=== PATIENT | male | born 1950 | race Caucasian/White ===

== ENCOUNTER → 2019-01-19 07:38 | Outpatient (CLI) | payer MEDICARE, SELFPAY ==
[2019-01-19 09:40] LABS: Alanine Aminotransferase 26 IU/L (21-72); Albumin 4.4 g/dL (3.5-5.0); Albumin Globulin Ratio 1.6 (1.0-2.8); Alkaline Phosphatase 81 U/L (38-126); Aspartate Aminotransferase 32 IU/L (17-59); BUN Creatinine Ratio 23.3 (6-22); Bilirubin Total 0.7 mg/dL (0.2-1.3); Blood Urea Nitrogen 21 mg/dL (9-20); Carbon Dioxide 27 mmol/L (22-32); Chloride 103 mmol/L (98-107); Cholesterol 161 mg/dL (140-199); Estimated Glomerular Filt Rate > 60.0 mL/min (>60); Globulin 2.8 g/dL (1.7-4.1); Glucose 89 mg/dL (80-110); HDL Cholesterol 40 mg/dL (40-60); HEMOLYSIS 23 (0-50); LDL Cholesterol Calculated 97 mg/dL (<100); Potassium 4.3 mmol/L (3.4-5.1); Sodium 140 mmol/L (137-145); Total Protein 7.2 g/dL (6.3-8.2); Triglycerides 120 mg/dL (35-150)
[2019-01-19 09:58] LABS: Prostate Specific Antigen Scrn 2.41 ng/mL (0.1-4.0)
[2019-01-19 10:13] LABS: TSH w/ Reflex to FT4 2.11 uIU/mL (0.47-4.68)
== END ==
PROVIDERS: PCP Internal Medicine; Visit Provider Internal Medicine
DX: E66.9 Obesity, unspecified (principal); Z12.5 Encounter for screening for malignant neoplasm of prostate
CPT/HCPCS: 36415; 80053; 80061; 84443; G0103

== ENCOUNTER → 2020-03-16 07:29 | Outpatient (CLI) | payer MEDICARE, SELFPAY ==
[2020-03-16 09:04] LABS: Cholesterol 143 mg/dL (140-199); HDL Cholesterol 41 mg/dL (40-60); LDL Cholesterol Calculated 84 mg/dL (<100); Triglycerides 91 mg/dL (35-150)
== END ==
PROVIDERS: PCP Internal Medicine; Referring Provider Internal Medicine; Visit Provider Internal Medicine
DX: E66.9 Obesity, unspecified (principal)
CPT/HCPCS: 36415; 80061

== ENCOUNTER → 2020-11-02 15:49 | Outpatient (CLI) | payer MEDICARE, SELFPAY ==
[2020-11-02] MEDS: COVID-19 VACC #1, MRNA(MOD) 100 MCG/0.5 ML VIAL IM (16:13)
== END ==
PROVIDERS: PCP Internal Medicine; Visit Provider Internal Medicine
DX: Z23 Encounter for immunization (principal)
CPT/HCPCS: 0011A; 91301

== ENCOUNTER → 2020-11-30 15:26 | Outpatient (CLI) | payer MEDICARE, SELFPAY ==
[2020-11-30] MEDS: COVID-19 VACC #2, MRNA(MOD) 100 MCG/0.5 ML VIAL IM (15:29)
== END ==
PROVIDERS: PCP Internal Medicine; Visit Provider Internal Medicine
DX: Z23 Encounter for immunization (principal)
CPT/HCPCS: 0012A; 91301

== ENCOUNTER → 2022-08-18 07:46 | Outpatient (CLI) | payer MEDICARE, SELFPAY ==
[2022-08-18 10:11] LABS: Prostate Specific Antigen Scrn 3.02 ng/mL (0.1-4.0)
== END ==
PROVIDERS: PCP Internal Medicine; Referring Provider Urology; Visit Provider Urology
DX: Z12.5 Encounter for screening for malignant neoplasm of prostate (principal)
CPT/HCPCS: 36415; G0103

== ENCOUNTER → 2023-01-12 07:46 | Outpatient (CLI) | payer MEDICARE, SELFPAY ==
[2023-01-12 08:04] LABS: Add Manual Diff / Slide Review NO; Basophils Absolute Auto 100 /uL (0-100); Basophils Percent Auto 0.9 % (0-2); Eosinophils Absolute Auto 300 /uL (0-450); Eosinophils Percent Auto 3.7 % (2-4); Hematocrit 43.8 % (41-53); Hemoglobin 15.4 g/dL (13.5-17.5); Lymphocytes Absolute Auto 2600 /uL (1100-4500); Lymphocytes Percent Auto 38.9 % (25-40); Mean Corpuscular HGB Conc 35.1 % (30-36); Mean Corpuscular Hemoglobin 30.2 PG (26-34); Monocytes Absolute Auto 700 /uL (0-900); Monocytes Percent Auto 9.6 % (3-14); Neutrophils Absolute Auto 3200 /uL (1500-7000); Neutrophils Percent Auto 46.9 % (50-75); Platelet Count 196 X10^3/uL (150-400); Red Blood Cell Count 5.09 X10^6/uL (4.5-5.9); Red Cell Distribution Width 13.1 % (11.6-14.8); White Blood Cell Count 6.8 X10^3/uL (4.5-11.0)
[2023-01-12 08:49] LABS: Alanine Aminotransferase 24 IU/L (<50); Albumin 4.1 g/dL (3.5-5.0); Albumin Globulin Ratio 1.5 (1.0-2.8); Alkaline Phosphatase 96 U/L (38-126); Aspartate Aminotransferase 26 IU/L (17-59); BUN Creatinine Ratio 21.7 (6-22); Blood Urea Nitrogen 20 mg/dL (9-20); Calcium 9.1 mg/dL (8.4-10.2); Carbon Dioxide 29 mmol/L (22-32); Chloride 104 mmol/L (98-107); Cholesterol 175 mg/dL (140-199); Estimated Glomerular Filt Rate > 60 mL/min (>60); Globulin 2.8 g/dL (1.7-4.1); Glucose 92 mg/dL (80-110); HDL Cholesterol 44 mg/dL (40-60); HEMOLYSIS < 15 (0-50); LDL Cholesterol Calculated 109 mg/dL (<100); Potassium 4.2 mmol/L (3.4-5.1); Sodium 139 mmol/L (137-145); Total Protein 6.9 g/dL (6.3-8.2); Triglycerides 109 mg/dL (35-150)
[2023-01-12 09:17] LABS: Prostate Specific Antigen Scrn 3.31 ng/mL (0.1-4.0)
== END ==
PROVIDERS: PCP Family Medicine; Referring Provider Family Medicine; Visit Provider Family Medicine
DX: I10 Essential (primary) hypertension (principal); Z12.5 Encounter for screening for malignant neoplasm of prostate; N13.8 Other obstructive and reflux uropathy; N40.1 Benign prostatic hyperplasia with lower urinary tract symptoms; R39.9 Unspecified symptoms and signs involving the genitourinary system
CPT/HCPCS: 36415; 80053; 80061; 85025; G0103

== ENCOUNTER → 2023-05-19 13:37 | Outpatient (CLI) | payer MEDICARE, SELFPAY ==
--- NOTE | 2023-05-19 13:39 | DI.RAD.S_ITS ---
PROCEDURE: XR ANKLE LT MIN 3V INDICATIONS: left ankle pain TECHNIQUE: 3 views of the ankle were acquired. COMPARISON: None. FINDINGS: Bones: No fractures or dislocations. Ankle mortise is normally aligned. No suspicious bony lesions. Soft tissues: No tibiotalar joint effusion. Achilles tendon appears normal. IMPRESSION: No evidence acute bony abnormality. If clinical suspicion and/or symptoms persist, further assessment with repeat plain films, or advanced imaging (e.g., CT, MRI, or bone scan) may be helpful for further assessment. Dictated by: Cory Eduardo M.D. on 05/19/2023 at 15:53 Approved by: Cory Eduardo M.D. on 05/19/2023 at 15:53
--- NOTE | 2023-05-19 13:39 | DI.RAD.S_ITS ---
PROCEDURE: XR CHEST 2V INDICATIONS: CHRONIC COUGH TECHNIQUE: 2 views of the chest were acquired. COMPARISON: [facility], CHEST 2 VIEW, 07/07/2017, 10:25. [facility], CHEST 2 VIEW, 03/18/2016, 11:32. FINDINGS: Surgical changes and devices: None. Lungs and pleura: Lungs are clear. No pleural effusions or pneumothorax. Mediastinum: Mediastinal contours are normal. Heart size is normal. Bones and chest wall: No suspicious bony abnormalities. Soft tissues appear unremarkable. IMPRESSION: No acute cardiopulmonary process. Dictated by: Kyaw Hansen M.D. on 05/19/2023 at 15:04 Approved by: Kyaw Hansen M.D. on 05/19/2023 at 15:05
--- NOTE | 2023-05-19 13:39 | DI.RAD.S_ITS ---
PROCEDURE: XR HIP W PEL IF DONE LT 2V INDICATIONS: CHRONIC LEFT HIP PAIN TECHNIQUE: 2 views of the hip were acquired. COMPARISON: None. FINDINGS: Bones: No fractures or dislocations. No suspicious bony lesions. The visualized pelvic ring appears intact. [id number] degenerative arthritis. Soft tissues: No suspicious soft tissue calcifications or masses. IMPRESSION: [id number] degenerative arthritis of the left hip. Dictated by: Cory Eduardo M.D. on 05/19/2023 at 15:56 Approved by: Cory Eduardo M.D. on 05/19/2023 at 15:56
--- NOTE | 2023-05-19 13:39 | DI.RAD.S_ITS ---
PROCEDURE: XR KNEE LT 3V INDICATIONS: KNEE PAIN TECHNIQUE: 3 views of the knee were acquired. COMPARISON: None. FINDINGS: Bones: No fractures or dislocations. No suspicious bony lesions. Tricompartment osteophytes. Patellofemoral joint space loss. Soft tissues: No joint effusion. No suspicious soft tissue calcifications. IMPRESSION: Degenerative arthritis. Dictated by: Cory Eduardo M.D. on 05/19/2023 at 15:54 Approved by: Cory Eduardo M.D. on 05/19/2023 at 15:54
== END ==
PROVIDERS: PCP Family Medicine; Referring Provider Family Medicine; Visit Provider Family Medicine
DX: M17.12 Unilateral primary osteoarthritis, left knee (principal); M25.572 Pain in left ankle and joints of left foot; M25.552 Pain in left hip; M25.562 Pain in left knee; R05.3 Chronic cough
CPT/HCPCS: 71046; 73502; 73562; 73610

== ENCOUNTER 2023-12-10 11:15 | Outpatient (RCR) | payer MEDICARE, SELFPAY ==
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
--- NOTE | 2023-10-15 17:35 | PT.OPPOC ---
Physical, Occupational & Speech Therapy At [facility] Current Diagnoses Pain in left hip (10/15/23) Pain in left knee (10/15/23) Pain in left ankle and joints of left foot (10/15/23) Visit Care Team Role Provider Type Farhad Jones MD Attending Provider Physician Family Provider Primary Care Provider Referring Provider Specialty: Family Practice Address: [address] [place] [address], [facility] Email: [email or web address] Plan Of Care PT-OP-T Assessment and Plan Start: 10/09/23 18:05 Freq: Status: Active Protocol: Document 10/15/23 14:44 LRN (Rec: 10/15/23 16:43 LRN [id number]) Physical Therapy Assessment Rehab Potential Rehabilitation Potential Good Evaluation Complexity Number of Personal Factors/Comorbidities 1-2 Impairments Impairments ROM,Soft Tissue Mobility, Strength Other Impairments History of intermittent pain in L hip causing difficulty sleeping, pain in sleeping positions. Goals Four Impairment Feeling weak in L ankle Short Term Goal (STG) Pt will be independent in HEP of ankle EV/IV stretching and SL balance ex's (core ex as needed). STG Duration 4 wks-11/12/23 [facility] Goal (LTG) Improve pt L ankle EV/IV ROM to increase pt ability to stabilize while walking on uneven ground (hiking). LTG Duration 8 wks-12/11/23 Three Impairment L knee pain after walking. Short Term Goal (STG) Pt will be independent with knee flexion ROM ex. STG Duration 2 wks-10/30/23 [employer] Goal (LTG) Improve L knee flexion mobility to improve pt's abiltiy to anbulate for ex w/o onset of L lateral knee pain. . LTG Duration 8 wks-12/11/23 Two Impairment Intermittent L hip pain at night, interrupting sleep. Impairment If he has hip pain, no nighttime pain wakikng him up. Short Term Goal (STG) Educate pt in best nighttime positioning to avoid L hip pressure pain. STG Duration 1 wk-10/23/23 [employer] Goal (LTG) Improve L hip ER mobility to eliminate onset of nighttime pain. LTG Duration 8 wks-12/11/23 One Impairment Pt lacks HEP. Short Term Goal (STG) Pt will be educated in self care pain management techniques (TRICE ROD w/ rafi). [facility] Goal (LTG) Pt will be educated in maintanence HEP for stabilize/ strength LLE and to slow down degredation of L hip/knee/ ankle. LTG Duration 8 wks-12/11/23 Assessment Summary Assessment Pt is a 73 yo male who presents today without c/o L lateral, posterolateral and anterior hip pain that he has had for the past year, but for the past 2 weeks has not experienced. He c/o sometimes having L hip pain while sleeping at night, and no pain when up and moving. Pain was reproduced with resisted hip AB in sidelie and hip ER stretching; therefore his pain may be arthrtic in nature. If the pt's L hip pain returns , further PT assessment will be given. He has c/o L lateral knee pain after walking that is only reproduced with excessive passive knee flexion, also indicating possible arthritic pain. HE shows no signs of internal derangement of the knee. His L ankle shows only restriction in lateral mobility, his L ankle strength is normal; therefore his feeling of weakness may be more due to a feeling of instability with a lack of ankle EV/IV mobility. The pt will benefit from skilled physical therapy to improve L LE mobility, then stability, core stability, and educate the pt in posturing and self care pain management, and work to achieve the above stated goals. Physical Therapy Plan Frequency and Duration Frequency of Treatment 2x/Week Duration of treatment (weeks) 8 Plan of Care Start Date 10/15/23 Plan of Care End Date 12/11/23 Therapeutic Interventions Therapeutic Interventions Home Exercise Program,Joint Mobilizations,Manual Therapy, Neuromuscular Re-education, Patient/Caregiver Education, Self-Care/Home Management,Soft Tissue Mobilization, Therapeutic Activities, Therapeutic Exercises Modalities Cold Pack/Ice Massage,Hot Packs,Ultrasound Next Visit Focus/Plan Next Note Type Treatment Note Next Visit Plan Next: Start with warm-up of exercise, Review HEP of L hip ER and L ankle EV/IV ROM ex and issue handout. POC: L hip (ER), knee (flex), ankle (EV/IV) mobility ex's, then stability ex's; core stability with ex, and educate the pt in posturing ( nighttime) and self care pain management. Balance ex's. Plan of Care Dates Plan of Care Start Date 10/15/23 Plan of Care End Date 12/11/23 Electronically Signed by: Holley Clement, PT 10/15/23 2813 If you are in agreement with this Plan of Care, please return a signed and dated copy. I have reviewed this Plan of Care and certify that the skilled therapy services above are required to meet the patient?s needs. Physician Signature Date Printed Name and Credentials Clinical Instructor Signature Printed Name and Credentials
--- NOTE | 2023-10-20 14:26 | PT.OTN ---
Current Diagnoses Pain in left hip (10/20/23) Pain in left knee (10/20/23) Pain in left ankle and joints of left foot (10/20/23) Physical Therapy Treatment Note PT-OP-A Visit Information Start: 10/09/23 18:05 Freq: Status: Active Protocol: Document 10/20/23 09:53 LRN (Rec: 10/20/23 10:35 LRN [id number]) Out-Patient Physical Therapy Visit Information Visit Information Visit Type Treatment Note Visit Start Time 09:53 Visit Stop Time 10:32 Total Visit Minutes 39 Visit Number 2 Evaluation Information Evaluation Date 10/15/23 Precautions Precautions Pt reports history of: Arthritis, back pain, vaso vagal syncope. 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 PT-OP-B Current Condition Start: 10/09/23 18:05 Freq: Status: Active Protocol: Document 10/15/23 14:44 LRN (Rec: 10/15/23 16:43 LRN [id number]) Current Condition History of Current Condition Onset Date 1 yr ago. Current Complaints No pain, L LE has made gait different, L knee unstable laterally. History of Current Condition 12-15 yrs ago developed weakness in L ankle. Going downhill ankle felt ankle could give way, but wasn't falling. L knee winter, slipped on ice with the L leg slipping under him and R leg went out in front of him (grabbed car with L arm), landing on L buttock. 2013 playing competetive baseball, 2016 missed the bottom 2 steps at home and landed like the previous fall of L leg under him. After 2 weeks of either incidents pain at lateral L knee and ramsey, went away. 1 yr ago L lateral hip and joint started bothering him. For months was on/off. Last 2 months the L lateral hip pain has been waking him. The last 2 weeks has had no nighttime pain. Biking feels like he is supported. KNEE PAIN WITH WLAKIKNG OR HIKING 6 MILES OR SO; HIP PAIN HAS ONLY BEEN WITH SLEEPING. HAS NOT HAD ANY HIP PAIN WITH WALKING. Prior Treatments and Tests X-rays (05/19/2023) showed arthritis in L hip and knee. Treatment Goals Patient/Caregiver Goals Pt goals: Maintanence HEP for stabilize/ strength LLE and to slow down degredation of L hip/knee/ ankle. If he has hip pain, no nighttime pain waking him up. Personal Factors Other Personal Factors That May Effect Arthritis, Walking [facility]/[place]overy trail or [place] park 3x/wk (10,000 steps) & home cable UE ex's- 2x/week. Pt has visible abdominal hernia. PT-OP-C Subjective Start: 10/09/23 18:05 Freq: Status: Active Protocol: Document 10/20/23 09:53 LRN (Rec: 10/20/23 10:35 LRN [id number]) OP-PT Subjective Patient Comments Patient Comments States he has been doing his HEP. PT-OP-G Mobility & Gait Start: 10/09/23 18:05 Freq: Status: Active Protocol: Document 10/15/23 14:44 LRN (Rec: 10/15/23 16:43 LRN [id number]) OP Gait Assessment Gait Gait Assistance Required: Independent Assistive Devices Assistive Device None Gait Deviations General Gait Pattern Within Normal Limits Comments Gait Comments Normal gait. Stair Climbing Evaluation Evaluation Level of Assist On Stairs Independent Devices Stair Climbing Assistive Devices None Technique/Endurance Stair Climbing Technique Step Over Step Comments Stair Climbing Comments Use of railing with stairs. PT-OP-H Neuro Start: 10/09/23 18:05 Freq: Status: Active Protocol: Document 10/15/23 14:44 LRN (Rec: 10/15/23 16:43 LRN [id number]) Sensation Evaluation Gross Sensation Gross Sensation WNL PT-OP-J Posture/Palpation/Skin Start: 10/09/23 18:05 Freq: Status: Active Protocol: Document 10/15/23 14:44 LRN (Rec: 10/15/23 16:43 LRN [id number]) Posture Evaluation Position Standing Head/C-Spine Posture Forward Head Shoulder Posture (L) Elevated Arm Posture (L) Internally Rotated,(R) Internally Rotated Pelvis Posture Anteriorly Tilted,(L) PSIS Posterior Hip Posture (L) Neutral,(R) Neutral Knee Posture (L) Neutral,(R) Neutral,(L) Int. Tibial Torsion,(R) Int. Tibial Torsion Patellar Posture (L) Laterally Tilted,(R) Laterally Tilted Ankle/Foot Posture (L) Pronated,(R) Pronated Foot Arch (R) Medium Arch,(L) Low Arch Comments Posture Comments Tilt upper body to R, mild anterior tilt of pelvis, protruding abdomen. Swelling in LE's with notable compression where socks were present. Palpation Assessment Location L hip Palpation Location L TFL, anterolateral jt line Palpation Findings Tenderness Palpation Details Tenderness with resisted hip AB & rolling of leg L knee Palpation Location No pain around joint or patella. L ankle Palpation Location No pain around joint. PT-OP-K Range of Motion Start: 10/09/23 18:05 Freq: Status: Active Protocol: Document 10/15/23 14:44 LRN (Rec: 10/15/23 16:43 LRN [id number]) Hip Goniometric Range of Motion Hip Right Active Testing Position Supine Internal Rotation 25 External Rotation 55 Left Active Testing Position Supine Internal Rotation 10 External Rotation 50 Knee Goniometric Range of Motion Knee Right Patient Position Supine Flexion Active (degrees) 140 Extension Active (degrees) 0 Left Patient Position Supine Flexion Active (degrees) 130 Extension Active (degrees) 0 Ankle and Foot Goniometric Range of Motion Ankle and Foot Right Active Testing Position Supine Dorsiflexion with Knee Extended 10 Plantarflexion 55 Inversion 35 Eversion 7 Comments Decreased mobility of IV 100% Left Active Testing Position Supine Dorsiflexion with Knee Extended 10 Plantarflexion 55 Inversion 28 Eversion 1 PT-OP-L Special Tests Start: 10/09/23 18:05 Freq: Status: Active Protocol: Document 10/15/23 14:44 LRN (Rec: 10/15/23 16:43 LRN [id number]) Special Tests Lumbar Spine Special Tests Straight Leg Raise Test Results - bilaterally Comments ~90 deg's bilaterally. PT-OP-M Strength Start: 10/09/23 18:05 Freq: Status: Active Protocol: Document 10/15/23 14:44 LRN (Rec: 10/15/23 16:43 LRN [id number]) Hip Strength Hip Manual Muscle Testing Right Comments Generally 5/5. Left Abduction 3+ Fair+ Comments Pain with hip AB in lateral hip. Strength is 5/5 except as indicated above. Loss of rotational core stability with MMT of hip. Knee Strength Knee Manual Muscle Testing Right Comments Generally 5/5 Left Comments Generally 5/5 Ankle/Foot Strength Ankle and Foot Manual Muscle Testing Right Comments Generally 3/5 Left Comments Generally 5/5 PT-OP-Q Treatments Start: 10/09/23 18:05 Freq: Status: Active Protocol: Document 10/20/23 09:53 LRN (Rec: 10/20/23 10:35 LRN [id number]) Cardio Equipment Recumbent Stepper (Sci-Fit) Duration (Minutes) 8 Resistance 1 Seat Position 13 Other rpm 40 Therapeutic Exercises Supine Exercises Knee flex stretch Supine Exercise Name Active Knee flex stretch Side left L Hip ER stretch Supine Exercise Name Fig 4 stretch - HEP Side left Reps/Minutes 60 SH with extra time for positioning. Comments Cued to use support under thigh if stretch is uncomfortable. Sitting Exercises Ankle circles Sitting Exercise Name Ankel circles CW, CCW Side left Reps/Minutes 10x each Ankle DF Sitting Exercise Name Active DF strengthening Side left Reps/Minutes 10x Ankle IV/EV Sitting Exercise Name Active stretch (ankle IV/EV, flex/Ext) -HEP Side left Reps/Minutes 6' Comments I/S to do HEP Self-Care/Home Management Treatment Education Patient Education Home Exercise Program Activities Self-Care/Home Management Activities Issued & reviewed HEP: L>R Hip stretches of KTC, Piriformis stretch (knee to opp shldr & KTC with ankle over knee, Lateral Hip stretch, Fig 4, Emeka test position hip flexor stretch (I /S can do from side of surface lying on). Issued & reviewed Ankle active ex's: IV/EV, DF, Circles. PT-OP-T Assessment and Plan Start: 10/09/23 18:05 Freq: Status: Active Protocol: Document 10/20/23 09:53 LRN (Rec: 10/20/23 10:35 LRN [id number]) Physical Therapy Assessment Goals Four Impairment Feeling weak in L ankle Short Term Goal (STG) Pt will be independent in HEP of ankle EV/IV stretching and SL balance ex's (core ex as needed). 10/20/23: HEP of active stretching: Ankle IV/EV, DF, Circles. STG Duration 4 wks-11/12/23 progressed (need SL balance, core as needed) [facility] Goal (LTG) Improve pt L ankle EV/IV ROM to increase pt ability to stabilize while walking on uneven ground (hiking). LTG Duration 8 wks-12/11/23 Three Impairment L knee pain after walking. Short Term Goal (STG) Pt will be independent with knee flexion ROM ex. 10/20/23: HEP: KTC knee flex stretch STG Duration 2 wks-10/30/23 (10/20/23: MET GOAL) Soft Sugar Operator Head Goal (LTG) Improve L knee flexion mobility to improve pt's abiltiy to anbulate for ex w/o onset of L lateral knee pain. . LTG Duration 8 wks-12/11/23 Two Impairment Intermittent L hip pain at night, interrupting sleep. Impairment If he has hip pain, no nighttime pain waking him up. Short Term Goal (STG) Educate pt in best nighttime positioning to avoid L hip pressure pain. STG Duration 1 wk-10/23/23 [facility]ci Goal (LTG) Improve L hip ER mobility to eliminate onset of nighttime pain. LTG Duration 8 wks-12/11/23 One Impairment Pt lacks HEP. Short Term Goal (STG) Pt will be educated in self care pain management techniques (TRICE ROD w/ stretches). [facility] Goal (LTG) Pt will be educated in maintanence HEP for stabilize/ strength LLE and to slow down degredation of L hip/knee/ ankle. 10/20/23: HEP: L>R Hip stretches of KTC, Piriformis stretch (knee to opp shldr & KTC with ankle over knee, Lateral Hip stretch, Fig 4, Emeka test position hip flexor stretch (I/S can do from side of surface lying on) . LTG Duration 8 wks-12/11/23 progressed Assessment Summary Assessment 73 yo male who denies L lateral, posterolateral and anterior hip pain that he has had for the past year, but for the past 2 weeks has not experienced the pain. His pain is elicited with hip ER stretch and resisted hip AD; therefore may be arthrtic in nature. Pt tolerated all ex's well with no increase in pain . Physical Therapy Plan Frequency and Duration Frequency of Treatment 2x/Week Duration of treatment (weeks) 8 Plan of Care Start Date 10/15/23 Plan of Care End Date 12/11/23 Next Visit Focus/Plan Next Note Type Treatment Note Next Visit Plan Next: Start with warm-up of exercise. Educate pt in best nighttime positioning to avoid L hip pressure pain. Educate pt in self care pain management techniques (TRICE ROD w/stretches). POC: L hip (ER), knee (flex), ankle (EV/IV) mobility ex's, then stability ex's; core stability with ex, and educate the pt in posturing ( nighttime) and self care pain management. Balance ex's.
--- NOTE | 2023-10-27 16:09 | PT.OTN ---
Current Diagnoses Pain in left hip (10/27/23) Pain in left knee (10/27/23) Pain in left ankle and joints of left foot (10/27/23) Physical Therapy Treatment Note PT-OP-A Visit Information Start: 10/09/23 18:05 Freq: Status: Active Protocol: Document 10/27/23 09:48 LRN (Rec: 10/27/23 10:33 LRN [id number]) Out-Patient Physical Therapy Visit Information Visit Information Visit Type Treatment Note Visit Start Time 10:28 Visit Stop Time 10:26 Total Visit Minutes 40 Visit Number 3 Evaluation Information Evaluation Date 10/15/23 Precautions Precautions Pt reports history of: Arthritis, back pain, vaso vagal syncope. 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 PT-OP-B Current Condition Start: 10/09/23 18:05 Freq: Status: Active Protocol: Document 10/15/23 14:44 LRN (Rec: 10/15/23 16:43 LRN [id number]) Current Condition History of Current Condition Onset Date 1 yr ago. Current Complaints No pain, L LE has made gait different, L knee unstable laterally. History of Current Condition 12-15 yrs ago developed weakness in L ankle. Going downhill ankle felt ankle could give way, but wasn't falling. L knee winter, slipped on ice with the L leg slipping under him and R leg went out in front of him (grabbed car with L arm), landing on L buttock. 2013 playing competetive baseball, 2016 missed the bottom 2 steps at home and landed like the previous fall of L leg under him. After 2 weeks of either incidents pain at lateral L knee and ramsey, went away. 1 yr ago L lateral hip and joint started bothering him. For months was on/off. Last 2 months the L lateral hip pain has been waking him. The last 2 weeks has had no nighttime pain. Biking feels like he is supported. KNEE PAIN WITH WLAKIKNG OR HIKING 6 MILES OR SO; HIP PAIN HAS ONLY BEEN WITH SLEEPING. HAS NOT HAD ANY HIP PAIN WITH WALKING. Prior Treatments and Tests X-rays (05/19/2023) showed arthritis in L hip and knee. Treatment Goals Patient/Caregiver Goals Pt goals: Maintanence HEP for stabilize/ strength LLE and to slow down degredation of L hip/knee/ ankle. If he has hip pain, no nighttime pain waking him up. Personal Factors Other Personal Factors That May Effect Arthritis, Walking [place] trail or [place] park 3x/wk (10,000 steps) & home cable UE ex's- 2x/week. Pt has visible abdominal hernia. PT-OP-C Subjective Start: 10/09/23 18:05 Freq: Status: Active Protocol: Document 10/27/23 09:48 LRN (Rec: 10/27/23 10:33 LRN [id number]) OP-PT Subjective Patient Comments Patient Comments Questions regarding HEP. No increased pain in joints but has improved flexiblity with tying shoes and putting on socks. Last night woke with L hip discomfort when waking up on R side. Does L trunk rot to relieve the discomfort ( rolls L shoulder back in partial R sidelie). PT-OP-G Mobility & Gait Start: 10/09/23 18:05 Freq: Status: Active Protocol: Document 10/15/23 14:44 LRN (Rec: 10/15/23 16:43 LRN [id number]) OP Gait Assessment Gait Gait Assistance Required: Independent Assistive Devices Assistive Device None Gait Deviations General Gait Pattern Within Normal Limits Comments Gait Comments Normal gait. Stair Climbing Evaluation Evaluation Level of Assist On Stairs Independent Devices Stair Climbing Assistive Devices None Technique/Endurance Stair Climbing Technique Step Over Step Comments Stair Climbing Comments Use of railing with stairs. PT-OP-H Neuro Start: 10/09/23 18:05 Freq: Status: Active Protocol: Document 10/15/23 14:44 LRN (Rec: 10/15/23 16:43 LRN [id number]) Sensation Evaluation Gross Sensation Gross Sensation WNL PT-OP-J Posture/Palpation/Skin Start: 10/09/23 18:05 Freq: Status: Active Protocol: Document 10/15/23 14:44 LRN (Rec: 10/15/23 16:43 LRN [id number]) Posture Evaluation Position Standing Head/C-Spine Posture Forward Head Shoulder Posture (L) Elevated Arm Posture (L) Internally Rotated,(R) Internally Rotated Pelvis Posture Anteriorly Tilted,(L) PSIS Posterior Hip Posture (L) Neutral,(R) Neutral Knee Posture (L) Neutral,(R) Neutral,(L) Int. Tibial Torsion,(R) Int. Tibial Torsion Patellar Posture (L) Laterally Tilted,(R) Laterally Tilted Ankle/Foot Posture (L) Pronated,(R) Pronated Foot Arch (R) Medium Arch,(L) Low Arch Comments Posture Comments Tilt upper body to R, mild anterior tilt of pelvis, protruding abdomen. Swelling in LE's with notable compression where socks were present. Palpation Assessment Location L hip Palpation Location L TFL, anterolateral jt line Palpation Findings Tenderness Palpation Details Tenderness with resisted hip AB & rolling of leg L knee Palpation Location No pain around joint or patella. L ankle Palpation Location No pain around joint. PT-OP-K Range of Motion Start: 10/09/23 18:05 Freq: Status: Active Protocol: Document 10/15/23 14:44 LRN (Rec: 10/15/23 16:43 LRN [id number]) Hip Goniometric Range of Motion Hip Right Active Testing Position Supine Internal Rotation 25 External Rotation 55 Left Active Testing Position Supine Internal Rotation 10 External Rotation 50 Knee Goniometric Range of Motion Knee Right Patient Position Supine Flexion Active (degrees) 140 Extension Active (degrees) 0 Left Patient Position Supine Flexion Active (degrees) 130 Extension Active (degrees) 0 Ankle and Foot Goniometric Range of Motion Ankle and Foot Right Active Testing Position Supine Dorsiflexion with Knee Extended 10 Plantarflexion 55 Inversion 35 Eversion 7 Comments Decreased mobility of IV 100% Left Active Testing Position Supine Dorsiflexion with Knee Extended 10 Plantarflexion 55 Inversion 28 Eversion 1 PT-OP-L Special Tests Start: 10/09/23 18:05 Freq: Status: Active Protocol: Document 10/15/23 14:44 LRN (Rec: 10/15/23 16:43 LRN [id number]) Special Tests Lumbar Spine Special Tests Straight Leg Raise Test Results - bilaterally Comments ~90 deg's bilaterally. PT-OP-M Strength Start: 10/09/23 18:05 Freq: Status: Active Protocol: Document 10/15/23 14:44 LRN (Rec: 10/15/23 16:43 LRN [id number]) Hip Strength Hip Manual Muscle Testing Right Comments Generally 5/5. Left Abduction 3+ Fair+ Comments Pain with hip AB in lateral hip. Strength is 5/5 except as indicated above. Loss of rotational core stability with MMT of hip. Knee Strength Knee Manual Muscle Testing Right Comments Generally 5/5 Left Comments Generally 5/5 Ankle/Foot Strength Ankle and Foot Manual Muscle Testing Right Comments Generally 3/5 Left Comments Generally 5/5 PT-OP-Q Treatments Start: 10/09/23 18:05 Freq: Status: Active Protocol: Document 10/27/23 09:48 LRN (Rec: 10/27/23 10:33 LRN [id number]) Cardio Equipment Recumbent Stepper (Sci-Fit) Duration (Minutes) 9 Resistance 2 Seat Position 13 Other rpm 40 Therapeutic Exercises Supine Exercises Breathing with TA tight Supine Exercise Name Breathing with TA tight Reps/Minutes 3' Comments much cuing and self cuing, pt not able to perform Hip flexor stretch Supine Exercise Name Emeka test position Side bilateral Reps/Minutes 4' Comments Tried 3 different locations on plinth. Sidelie on edge works best. Lateral hip stretch Supine Exercise Name Lateral Hip stretch Side left Comments Cuing to keep LB from rotating Knee flex stretch Supine Exercise Name KTC - knee flex stretch Side left Reps/Minutes 2' L Hip ER stretch Supine Exercise Name Fig 4 stretch - HEP Side left Reps/Minutes 60 SH Comments cued to hold for 60 secs. Sidelying Exercises TA tightening Sidelying Exercise Name TA tightening Reps/Minutes 3' Comments Pt not able to hold when breathing. Sitting Exercises Trunk rot Sitting Exercise Name Active trunk rot for deep rotator strengthening Side bilateral Comments Cuing for drawing ribs inward Ankle circles Sitting Exercise Name Ankel circles CW, CCW Side left Reps/Minutes 10x each Therapeutic Activity Therapeutic Activity Nighttime positioning Name Nighttime positioning training in R sidelie Reps/Minutes 5' Comments Folded towel under lateral trunk and pillow between knees . Transfer training Name Sup<>Sit transfer Reps/Minutes 3' Comments Cuing for rolling, breath, TA tightening Self-Care/Home Management Treatment Education Patient Education Home Exercise Program Other Education Discussed HEP with modification of Hip flexor stretch to hold 10-20-30 secs with 2 sec rest, x 10 reps. Activities Self-Care/Home Management Activities I/S pt to perform active sitting trunk rot with exhale on rotation. I/S pt to practice normal breathing with core stabilized , moving thru chest. PT-OP-T Assessment and Plan Start: 10/09/23 18:05 Freq: Status: Active Protocol: Document 10/27/23 09:48 LRN (Rec: 10/27/23 10:33 LRN [id number]) Physical Therapy Assessment Goals Four Impairment Feeling weak in L ankle Short Term Goal (STG) Pt will be independent in HEP of ankle EV/IV stretching and SL balance ex's (core ex as needed). 10/20/23: HEP of active stretching: Ankle IV/EV, DF, Circles. STG Duration 4 wks-11/12/23 progressed (need SL balance, core as needed) Shelter Goal (LTG) Improve pt L ankle EV/IV ROM to increase pt ability to stabilize while walking on uneven ground (hiking). LTG Duration 8 wks-12/11/23 Three Impairment L knee pain after walking. Short Term Goal (STG) Pt will be independent with knee flexion ROM ex. 10/20/23: HEP: KTC knee flex stretch STG Duration 2 wks-10/30/23 (10/20/23: MET GOAL) Shelter Goal (LTG) Improve L knee flexion mobility to improve pt's abiltiy to anbulate for ex w/o onset of L lateral knee pain. LTG Duration 8 wks-12/11/23 Two Impairment Intermittent L hip pain at night, interrupting sleep. Impairment If he has hip pain, no nighttime pain waking him up. Short Term Goal (STG) Educate pt in best nighttime positioning to avoid L hip pressure pain. STG Duration 1 wk-10/23/23 Electrolysis Investigator Goal (LTG) Improve L hip ER mobility to eliminate onset of nighttime pain. LTG Duration 8 wks-12/11/23 One Impairment Pt lacks HEP. Short Term Goal (STG) Pt will be educated in self care pain management techniques (VIOLA, MH w/ stretches). Electrolysis Investigator Goal (LTG) Pt will be educated in maintanence HEP for stabilize/ strength LLE and to slow down degredation of L hip/knee/ ankle. 10/20/23: HEP: L>R Hip stretches of KTC, Piriformis stretch (knee to opp shldr & KTC with ankle over knee, Lateral Hip stretch, Fig 4, Emeka test position hip flexor stretch (I/S can do from side of surface lying on) . LTG Duration 8 wks-12/11/23 progressed Assessment Summary Assessment 73 yo male who possibly has L hip arthritis with L lateral, posterolateral and anterior hip pain, but at time of eval was not having pain. Pt having x 1 L lateral hip pain waking on R sidelie; therefore pillow between knees may help support the L hip for pain management. Pt is familiar with HEP, but needed modification to how he was stretching lateral hip. Physical Therapy Plan Frequency and Duration Frequency of Treatment 2x/Week Duration of treatment (weeks) 8 Plan of Care Start Date 10/15/23 Plan of Care End Date 12/11/23 Next Visit Focus/Plan Next Note Type Treatment Note Next Visit Plan Next: Start with warm-up of exercise. Assess response to pt education in nighttime positioning to avoid L hip pain. IF no knee pain, check AROM. Educate in off lying on L hip if pain is with L sidelie. Educate pt in self care pain management techniques (TRICE ROD w/ stretches). Issue HEP: Trunk rot and TA (sup/sidelie) strengthening. POC: L hip (ER), knee (flex), ankle (EV/IV) mobility ex's, then stability ex's; core stability with ex. Balance ex 's.
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
--- NOTE | 2023-11-05 12:33 | PT.OTN ---
Current Diagnoses Pain in left hip (11/05/23) Pain in left knee (11/05/23) Pain in left ankle and joints of left foot (11/05/23) Physical Therapy Treatment Note PT-OP-A Visit Information Start: 10/09/23 18:05 Freq: Status: Active Protocol: Document 11/05/23 08:17 LRN (Rec: 11/05/23 09:01 LRN [id number]) Out-Patient Physical Therapy Visit Information Visit Information Visit Type Treatment Note Visit Start Time 08:17 Visit Stop Time 09:00 Visit Number 6 Evaluation Information Evaluation Date 10/15/23 Precautions Precautions Pt reports history of: Arthritis, back pain, vaso vagal syncope. 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 PT-OP-B Current Condition Start: 10/09/23 18:05 Freq: Status: Active Protocol: Document 10/15/23 14:44 LRN (Rec: 10/15/23 16:43 LRN [id number]) Current Condition History of Current Condition Onset Date 1 yr ago. Current Complaints No pain, L LE has made gait different, L knee unstable laterally. History of Current Condition 12-15 yrs ago developed weakness in L ankle. Going downhill ankle felt ankle could give way, but wasn't falling. L knee winter, slipped on ice with the L leg slipping under him and R leg went out in front of him (grabbed car with L arm), landing on L buttock. 2013 playing competetive baseball, 2016 missed the bottom 2 steps at home and landed like the previous fall of L leg under him. After 2 weeks of either incidents pain at lateral L knee and ramsey, went away. 1 yr ago L lateral hip and joint started bothering him. For months was on/off. Last 2 months the L lateral hip pain has been waking him. The last 2 weeks has had no nighttime pain. Biking feels like he is supported. KNEE PAIN WITH WLAKIKNG OR HIKING 6 MILES OR SO; HIP PAIN HAS ONLY BEEN WITH SLEEPING. HAS NOT HAD ANY HIP PAIN WITH WALKING. Prior Treatments and Tests X-rays (05/19/2023) showed arthritis in L hip and knee. Treatment Goals Patient/Caregiver Goals Pt goals: Maintanence HEP for stabilize/ strength LLE and to slow down degredation of L hip/knee/ ankle. If he has hip pain, no nighttime pain waking him up. Personal Factors Other Personal Factors That May Effect Arthritis, Walking [facility]/Recovery trail or [place] park 3x/wk (10,000 steps) & home cable UE ex's- 2x/week. Pt has visible abdominal hernia. PT-OP-C Subjective Start: 10/09/23 18:05 Freq: Status: Active Protocol: Document 11/05/23 08:17 LRN (Rec: 11/05/23 09:01 LRN [id number]) OP-PT Subjective Patient Comments Patient Comments States he felt stable with some walk on trail, but mostly on asphalt. Rode bike to clinic. Patient Reported Progress Same PT-OP-G Mobility & Gait Start: 10/09/23 18:05 Freq: Status: Active Protocol: Document 10/15/23 14:44 LRN (Rec: 10/15/23 16:43 LRN [id number]) OP Gait Assessment Gait Gait Assistance Required: Independent Assistive Devices Assistive Device None Gait Deviations General Gait Pattern Within Normal Limits Comments Gait Comments Normal gait. Stair Climbing Evaluation Evaluation Level of Assist On Stairs Independent Devices Stair Climbing Assistive Devices None Technique/Endurance Stair Climbing Technique Step Over Step Comments Stair Climbing Comments Use of railing with stairs. PT-OP-H Neuro Start: 10/09/23 18:05 Freq: Status: Active Protocol: Document 10/15/23 14:44 LRN (Rec: 10/15/23 16:43 LRN [id number]) Sensation Evaluation Gross Sensation Gross Sensation WNL PT-OP-J Posture/Palpation/Skin Start: 10/09/23 18:05 Freq: Status: Active Protocol: Document 10/15/23 14:44 LRN (Rec: 10/15/23 16:43 LRN [id number]) Posture Evaluation Position Standing Head/C-Spine Posture Forward Head Shoulder Posture (L) Elevated Arm Posture (L) Internally Rotated,(R) Internally Rotated Pelvis Posture Anteriorly Tilted,(L) PSIS Posterior Hip Posture (L) Neutral,(R) Neutral Knee Posture (L) Neutral,(R) Neutral,(L) Int. Tibial Torsion,(R) Int. Tibial Torsion Patellar Posture (L) Laterally Tilted,(R) Laterally Tilted Ankle/Foot Posture (L) Pronated,(R) Pronated Foot Arch (R) Medium Arch,(L) Low Arch Comments Posture Comments Tilt upper body to R, mild anterior tilt of pelvis, protruding abdomen. Swelling in LE's with notable compression where socks were present. Palpation Assessment Location L hip Palpation Location L TFL, anterolateral jt line Palpation Findings Tenderness Palpation Details Tenderness with resisted hip AB & rolling of leg L knee Palpation Location No pain around joint or patella. L ankle Palpation Location No pain around joint. PT-OP-K Range of Motion Start: 10/09/23 18:05 Freq: Status: Active Protocol: Document 11/05/23 08:17 LRN (Rec: 11/05/23 09:13 LRN [id number]) Ankle and Foot Goniometric Range of Motion Ankle and Foot Right Active Testing Position Supine Dorsiflexion with Knee Extended 10 Plantarflexion 35 Inversion 35 Eversion 7 Left Active Testing Position Supine Dorsiflexion with Knee Flexed 12 Dorsiflexion with Knee Extended 53 Inversion 28 Eversion 1 PT-OP-L Special Tests Start: 10/09/23 18:05 Freq: Status: Active Protocol: Document 10/15/23 14:44 LRN (Rec: 10/15/23 16:43 LRN [id number]) Special Tests Lumbar Spine Special Tests Straight Leg Raise Test Results - bilaterally Comments ~90 deg's bilaterally. PT-OP-M Strength Start: 10/09/23 18:05 Freq: Status: Active Protocol: Document 10/15/23 14:44 LRN (Rec: 10/15/23 16:43 LRN [id number]) Hip Strength Hip Manual Muscle Testing Right Comments Generally 5/5. Left Abduction 3+ Fair+ Comments Pain with hip AB in lateral hip. Strength is 5/5 except as indicated above. Loss of rotational core stability with MMT of hip. Knee Strength Knee Manual Muscle Testing Right Comments Generally 5/5 Left Comments Generally 5/5 Ankle/Foot Strength Ankle and Foot Manual Muscle Testing Right Comments Generally 3/5 Left Comments Generally 5/5 PT-OP-Q Treatments Start: 10/09/23 18:05 Freq: Status: Active Protocol: Document 11/05/23 08:17 LRN (Rec: 11/05/23 09:01 LRN [id number]) Cardio Equipment Recumbent Stepper (Sci-Fit) Duration (Minutes) 10 Resistance 3.5 Seat Position 13 Therapeutic Exercises Sitting Exercises Ankle DF Sitting Exercise Name Ankle DF Side left Reps/Minutes 15x 2 Comments Cued to isolate quads from ex Ankle IV/EV Sitting Exercise Name IV/EV Side left Equipment Used Lev 2 TB Reps/Minutes 15x 2 Comments Extra time taken to determine max patience resistance, and training. Neuro Re-Education Treatment Balance Activities Heel Raises Details Heel raises in open Surface Level Reps/Duration 15x Step ups/downs Details Step ups/downs Equipment 6 step, 8 step Reps/Duration 30x each SLS Details SLS balancing: Static standing, reaching fwd, tandem Surface floor w/shoes Equipment chair in front for reaching fwd & tandem stance Reps/Duration 8' Comments 9 L; 60 R (arms used for balance); with cued posture below: 28 L; 40 Cued: Arms crossed over chest (with static standing SLS) erect posture over stance LE with core engagement little bent knee stance time R>L Instructed progress floor up to 30-60 before stand on foam . Self-Care/Home Management Treatment Education Other Education Educated pt in self care pain management techniques (RICE, MH w/stretches). Activities Self-Care/Home Management Activities Issued HEP: SLS ex's and RICE treatment for pain. PT-OP-T Assessment and Plan Start: 10/09/23 18:05 Freq: Status: Active Protocol: Document 11/05/23 08:17 LRN (Rec: 11/05/23 09:01 LRN [id number]) Physical Therapy Assessment Goals Four Impairment Feeling weak in L ankle Short Term Goal (STG) Pt will be independent in HEP of ankle EV/IV stretching and SL balance ex's (core ex as needed). 10/20/23: HEP of active stretching: Ankle IV/EV, DF, Circles. 11/03/23: Reviewed HEP of SLS exer. STG Duration 4 wks-11/12/23 (11/03/23: MET GOAL, but can add core ex) Thin Film Technician Goal (LTG) Improve pt L ankle EV/IV ROM to increase pt ability to stabilize while walking on uneven ground (hiking). 11/05/23: Has walked 2 miles hiking slow walking but mostly level ground.; felt stability . LTG Duration 8 wks-12/11/23 Three Impairment L knee pain after walking. Short Term Goal (STG) Pt will be independent with knee flexion ROM ex. 10/20/23: HEP: KTC knee flex stretch STG Duration 2 wks-10/30/23 (10/20/23: MET GOAL) Thin Film Technician Goal (LTG) Improve L knee flexion mobility to improve pt's abiltiy to anbulate for ex w/o onset of L lateral knee pain. 11/03/23: No pain with walking on level, some discomfort on decline angle. LTG Duration 8 wks-12/11/23 progressed Two Impairment Intermittent L hip pain at night, interrupting sleep. Impairment If he has hip pain, no nighttime pain waking him up. Short Term Goal (STG) Educate pt in best nighttime positioning to avoid L hip pressure pain. STG Duration 1 wk-10/23/23 (10/27/23: MET GOAL) Thin Film Technician Goal (LTG) Improve L hip ER mobility to eliminate onset of nighttime pain. 11/03/23: No L hip pain at nighttime. LTG Duration 8 wks-12/11/23 (11/03/23: MET GOAL) One Impairment Pt lacks HEP. Short Term Goal (STG) Pt will be educated in self care pain management techniques (VIOLA, TRICE w/ stretches). Thin Film Technician Goal (LTG) Pt will be educated in maintanence HEP for stabilize/ strength LLE and to slow down degredation of L hip/knee/ ankle. 10/20/23: HEP: L>R Hip stretches of KTC, Piriformis stretch (knee to opp shldr & KTC with ankle over knee, Lateral Hip stretch, Fig 4, Emeka test position hip flexor stretch (I/S can do from side of surface lying on) . 10/30/23: added TA hip abd and SLS review self HEP floor 1st while support 's HEP. LTG Duration 8 wks-12/11/23 progressed Assessment Summary Assessment 73 yo male with probable L hip arthritis, no pain on initial eval, but prior to therapy had L anterior, lateral, and posterolateral hip pain. Pt reportedly has L knee pain with walking declines and demonstrates decreased L SLS ability. We have been working on improving his L ankle stability with TBand ex's but today he needed correction of L ankle ex's to isolate mvmt to lower leg muscles and decrease from quads. L ankle pain probably from instability with ankle AROM>left than right. L LE less stable with SLS. L knee needs CKC strengthening. Physical Therapy Plan Frequency and Duration Frequency of Treatment 2x/Week Duration of treatment (weeks) 8 Plan of Care Start Date 10/15/23 Plan of Care End Date 12/11/23 Next Visit Focus/Plan Next Note Type Treatment Note Next Visit Plan DC once pt on indep HEP, ?2 visits. Next: Review Balance ex's. Add Shuttle balance, f/b R ankle stretch, progress L ankle strengthening (PF). Educate in off lying on L hip if pain is with L sidelie. Issue HEP: Trunk rot and TA ( sup/sidelie) strengthening. POC: ankle stability ex's (PF ); CKC knee quad strengthening ; core stability with ex; Balance ex's.
--- NOTE | 2023-11-10 16:42 | PT.OTN ---
Current Diagnoses Pain in left hip (11/10/23) Pain in left knee (11/10/23) Pain in left ankle and joints of left foot (11/10/23) Physical Therapy Treatment Note PT-OP-A Visit Information Start: 10/09/23 18:05 Freq: Status: Active Protocol: Document 11/10/23 14:10 AB (Rec: 11/10/23 16:40 AB [id number]) Out-Patient Physical Therapy Visit Information Visit Information Visit Type Treatment Note Visit Start Time 14:30 Visit Stop Time 15:12 Visit Number [address] [place] Visits 1 Evaluation Information Evaluation Date 10/15/23 Precautions Precautions Pt reports history of: Arthritis, back pain, vaso vagal syncope. 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 PT-OP-B Current Condition Start: 10/09/23 18:05 Freq: Status: Active Protocol: Document 10/15/23 14:44 LRN (Rec: 10/15/23 16:43 LRN [id number]) Current Condition History of Current Condition Onset Date 1 yr ago. Current Complaints No pain, L LE has made gait different, L knee unstable laterally. History of Current Condition 12-15 yrs ago developed weakness in L ankle. Going downhill ankle felt ankle could give way, but wasn't falling. L knee winter, slipped on ice with the L leg slipping under him and R leg went out in front of him (grabbed car with L arm), landing on L buttock. 2013 playing competetive baseball, 2016 missed the bottom 2 steps at home and landed like the previous fall of L leg under him. After 2 weeks of either incidents pain at lateral L knee and ramsey, went away. 1 yr ago L lateral hip and joint started bothering him. For months was on/off. Last 2 months the L lateral hip pain has been waking him. The last 2 weeks has had no nighttime pain. Biking feels like he is supported. KNEE PAIN WITH WLAKIKNG OR HIKING 6 MILES OR SO; HIP PAIN HAS ONLY BEEN WITH SLEEPING. HAS NOT HAD ANY HIP PAIN WITH WALKING. Prior Treatments and Tests X-rays (05/19/2023) showed arthritis in L hip and knee. Treatment Goals Patient/Caregiver Goals Pt goals: Maintanence HEP for stabilize/ strength LLE and to slow down degredation of L hip/knee/ ankle. If he has hip pain, no nighttime pain waking him up. Personal Factors Other Personal Factors That May Effect Arthritis, Walking [facility] trail or [place] park 3x/wk (10,000 steps) & home cable UE ex's- 2x/week. Pt has visible abdominal hernia. PT-OP-C Subjective Start: 10/09/23 18:05 Freq: Status: Active Protocol: Document 11/10/23 14:10 AB (Rec: 11/10/23 16:40 AB [id number]) OP-PT Subjective Patient Comments Patient Comments Patient reports he is the same compared to previous session, but overall flexibility is better since starting PT. Reports left knees hurts descending hills and stairs. PT-OP-G Mobility & Gait Start: 10/09/23 18:05 Freq: Status: Active Protocol: Document 10/15/23 14:44 LRN (Rec: 10/15/23 16:43 LRN [id number]) OP Gait Assessment Gait Gait Assistance Required: Independent Assistive Devices Assistive Device None Gait Deviations General Gait Pattern Within Normal Limits Comments Gait Comments Normal gait. Stair Climbing Evaluation Evaluation Level of Assist On Stairs Independent Devices Stair Climbing Assistive Devices None Technique/Endurance Stair Climbing Technique Step Over Step Comments Stair Climbing Comments Use of railing with stairs. PT-OP-H Neuro Start: 10/09/23 18:05 Freq: Status: Active Protocol: Document 10/15/23 14:44 LRN (Rec: 10/15/23 16:43 LRN [id number]) Sensation Evaluation Gross Sensation Gross Sensation WNL PT-OP-J Posture/Palpation/Skin Start: 10/09/23 18:05 Freq: Status: Active Protocol: Document 10/15/23 14:44 LRN (Rec: 10/15/23 16:43 LRN [id number]) Posture Evaluation Position Standing Head/C-Spine Posture Forward Head Shoulder Posture (L) Elevated Arm Posture (L) Internally Rotated,(R) Internally Rotated Pelvis Posture Anteriorly Tilted,(L) PSIS Posterior Hip Posture (L) Neutral,(R) Neutral Knee Posture (L) Neutral,(R) Neutral,(L) Int. Tibial Torsion,(R) Int. Tibial Torsion Patellar Posture (L) Laterally Tilted,(R) Laterally Tilted Ankle/Foot Posture (L) Pronated,(R) Pronated Foot Arch (R) Medium Arch,(L) Low Arch Comments Posture Comments Tilt upper body to R, mild anterior tilt of pelvis, protruding abdomen. Swelling in LE's with notable compression where socks were present. Palpation Assessment Location L hip Palpation Location L TFL, anterolateral jt line Palpation Findings Tenderness Palpation Details Tenderness with resisted hip AB & rolling of leg L knee Palpation Location No pain around joint or patella. L ankle Palpation Location No pain around joint. PT-OP-K Range of Motion Start: 10/09/23 18:05 Freq: Status: Active Protocol: Document 11/05/23 08:17 LRN (Rec: 11/05/23 09:13 LRN [id number]) Ankle and Foot Goniometric Range of Motion Ankle and Foot Right Active Testing Position Supine Dorsiflexion with Knee Extended 10 Plantarflexion 35 Inversion 35 Eversion 7 Left Active Testing Position Supine Dorsiflexion with Knee Flexed 12 Dorsiflexion with Knee Extended 53 Inversion 28 Eversion 1 PT-OP-L Special Tests Start: 10/09/23 18:05 Freq: Status: Active Protocol: Document 10/15/23 14:44 LRN (Rec: 10/15/23 16:43 LRN [id number]) Special Tests Lumbar Spine Special Tests Straight Leg Raise Test Results - bilaterally Comments ~90 deg's bilaterally. PT-OP-M Strength Start: 10/09/23 18:05 Freq: Status: Active Protocol: Document 10/15/23 14:44 LRN (Rec: 10/15/23 16:43 LRN [id number]) Hip Strength Hip Manual Muscle Testing Right Comments Generally 5/5. Left Abduction 3+ Fair+ Comments Pain with hip AB in lateral hip. Strength is 5/5 except as indicated above. Loss of rotational core stability with MMT of hip. Knee Strength Knee Manual Muscle Testing Right Comments Generally 5/5 Left Comments Generally 5/5 Ankle/Foot Strength Ankle and Foot Manual Muscle Testing Right Comments Generally 3/5 Left Comments Generally 5/5 PT-OP-Q Treatments Start: 10/09/23 18:05 Freq: Status: Active Protocol: Document 11/10/23 14:10 AB (Rec: 11/10/23 16:40 AB [id number]) Therapeutic Exercises Sitting Exercises Ankle DF Sitting Exercise Name Ankle DF Side left Equipment Used level 2 band Reps/Minutes 15x 2 Ankle IV/EV Sitting Exercise Name IV/EV Side left Equipment Used Lev 2 TB Reps/Minutes 15x 2 Comments Review of band positioning Standing Exercises squat Standing Exercise Name squat with and without band Side bilateral Resistance level 2 band Reps/Minutes 3X10 Comments post hip hinge training VC to squat to depth that is not painful heel raise Standing Exercise Name with UE support Side bilateral Reps/Minutes 3X10 Comments VC to lower heels to floor slowly for carryover into controlling fwd moment Neuro Re-Education Treatment Balance Activities shuttle Details feet on 4's then one foot fwd Equipment Shuttle Reps/Duration 4 minutes Comments VC to use bars as need for LOB step up taps Details touching stap without UE support Surface floor Equipment 4 inch step Reps/Duration X20 Comments VC to count backwards by 2's tandem stepping Details hands above parallel bars, CGA to close supervision Reps/Duration 10 feetX 2 Comments Verbal cues Coordination Activities stairs Details desc and asc stairs Equipment 4 six inch steps one rail used Reps/Duration X4 Comments patient ed rationale of descend/asce stairs with less quad dom pattern to decrease knee pain, VC and vis cues Self-Care/Home Management Treatment Education Other Education squat ( mini ) with band and HR added to HEP PT-OP-T Assessment and Plan Start: 10/09/23 18:05 Freq: Status: Active Protocol: Document 11/10/23 14:10 AB (Rec: 11/10/23 16:40 AB [id number]) Physical Therapy Assessment Goals Four Impairment Feeling weak in L ankle Short Term Goal (STG) Pt will be independent in HEP of ankle EV/IV stretching and SL balance ex's (core ex as needed). 10/20/23: HEP of active stretching: Ankle IV/EV, DF, Circles. 11/03/23: Reviewed HEP of SLS exer. STG Duration 4 wks-11/12/23 (11/03/23: MET GOAL, but can add core ex) Fpc Goal (LTG) Improve pt L ankle EV/IV ROM to increase pt ability to stabilize while walking on uneven ground (hiking). 11/05/23: Has walked 2 miles hiking slow walking but mostly level ground.; felt stability . LTG Duration 8 wks-12/11/23 Assessment Summary Assessment Gregg reports invigorated end of session. Patient was able to descend stairs using a rail with a less quad dominant pattern reporting and less left knee pain post training. Physical Therapy Plan Frequency and Duration Frequency of Treatment 2x/Week Duration of treatment (weeks) 8 Plan of Care Start Date 10/15/23 Plan of Care End Date 12/11/23 Therapeutic Interventions Therapeutic Interventions Home Exercise Program,Joint Mobilizations,Manual Therapy, Neuromuscular Re-education, Patient/Caregiver Education, Self-Care/Home Management,Soft Tissue Mobilization, Therapeutic Activities, Therapeutic Exercises Modalities Cold Pack/Ice Massage,Hot Packs,Ultrasound Next Visit Focus/Plan Next Note Type Treatment Note Next Visit Plan DC once pt on indep HEP, ?2 visits. Next: Review Balance ex's. Add Shuttle balance, f/b R ankle stretch, progress L ankle strengthening (PF). Educate in off lying on L hip if pain is with L sidelie. Issue HEP: Trunk rot and TA ( sup/sidelie) strengthening. POC: ankle stability ex's (PF ); CKC knee quad strengthening ; core stability with ex; Balance ex's. possibly eccentric HR progression, progress squat as able
--- NOTE | 2023-11-10 16:43 | PT.OTN ---
Current Diagnoses Pain in left hip (11/10/23) Pain in left knee (11/10/23) Pain in left ankle and joints of left foot (11/10/23) Physical Therapy Treatment Note PT-OP-A Visit Information Start: 10/09/23 18:05 Freq: Status: Active Protocol: Document 11/10/23 14:10 AB (Rec: 11/10/23 16:40 AB [id number]) Out-Patient Physical Therapy Visit Information Visit Information Visit Type Treatment Note Visit Start Time 14:30 Visit Stop Time 15:12 Visit Number 7 Number of PROCESS CONTROL ENGINEER Visits 1 Evaluation Information Evaluation Date 10/15/23 Precautions Precautions Pt reports history of: Arthritis, back pain, vaso vagal syncope. 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 PT-OP-B Current Condition Start: 10/09/23 18:05 Freq: Status: Active Protocol: Document 10/15/23 14:44 LRN (Rec: 10/15/23 16:43 LRN [id number]) Current Condition History of Current Condition Onset Date 1 yr ago. Current Complaints No pain, L LE has made gait different, L knee unstable laterally. History of Current Condition 12-15 yrs ago developed weakness in L ankle. Going downhill ankle felt ankle could give way, but wasn't falling. L knee winter, slipped on ice with the L leg slipping under him and R leg went out in front of him (grabbed car with L arm), landing on L buttock. 2013 playing competetive baseball, 2016 missed the bottom 2 steps at home and landed like the previous fall of L leg under him. After 2 weeks of either incidents pain at lateral L knee and ramsey, went away. 1 yr ago L lateral hip and joint started bothering him. For months was on/off. Last 2 months the L lateral hip pain has been waking him. The last 2 weeks has had no nighttime pain. Biking feels like he is supported. KNEE PAIN WITH WLAKIKNG OR HIKING 6 MILES OR SO; HIP PAIN HAS ONLY BEEN WITH SLEEPING. HAS NOT HAD ANY HIP PAIN WITH WALKING. Prior Treatments and Tests X-rays (05/19/2023) showed arthritis in L hip and knee. Treatment Goals Patient/Caregiver Goals Pt goals: Maintanence HEP for stabilize/ strength LLE and to slow down degredation of L hip/knee/ ankle. If he has hip pain, no nighttime pain waking him up. Personal Factors Other Personal Factors That May Effect Arthritis, Walking [place]/Recovery trail or [place] park 3x/wk (10,000 steps) & home cable UE ex's- 2x/week. Pt has visible abdominal hernia. PT-OP-C Subjective Start: 10/09/23 18:05 Freq: Status: Active Protocol: Document 11/10/23 14:10 AB (Rec: 11/10/23 16:40 AB [id number]) OP-PT Subjective Patient Comments Patient Comments Patient reports he is the same compared to previous session, but overall flexibility is better since starting PT. Reports left knees hurts descending hills and stairs. PT-OP-G Mobility & Gait Start: 10/09/23 18:05 Freq: Status: Active Protocol: Document 10/15/23 14:44 LRN (Rec: 10/15/23 16:43 LRN [id number]) OP Gait Assessment Gait Gait Assistance Required: Independent Assistive Devices Assistive Device None Gait Deviations General Gait Pattern Within Normal Limits Comments Gait Comments Normal gait. Stair Climbing Evaluation Evaluation Level of Assist On Stairs Independent Devices Stair Climbing Assistive Devices None Technique/Endurance Stair Climbing Technique Step Over Step Comments Stair Climbing Comments Use of railing with stairs. PT-OP-H Neuro Start: 10/09/23 18:05 Freq: Status: Active Protocol: Document 10/15/23 14:44 LRN (Rec: 10/15/23 16:43 LRN [id number]) Sensation Evaluation Gross Sensation Gross Sensation WNL PT-OP-J Posture/Palpation/Skin Start: 10/09/23 18:05 Freq: Status: Active Protocol: Document 10/15/23 14:44 LRN (Rec: 10/15/23 16:43 LRN [id number]) Posture Evaluation Position Standing Head/C-Spine Posture Forward Head Shoulder Posture (L) Elevated Arm Posture (L) Internally Rotated,(R) Internally Rotated Pelvis Posture Anteriorly Tilted,(L) PSIS Posterior Hip Posture (L) Neutral,(R) Neutral Knee Posture (L) Neutral,(R) Neutral,(L) Int. Tibial Torsion,(R) Int. Tibial Torsion Patellar Posture (L) Laterally Tilted,(R) Laterally Tilted Ankle/Foot Posture (L) Pronated,(R) Pronated Foot Arch (R) Medium Arch,(L) Low Arch Comments Posture Comments Tilt upper body to R, mild anterior tilt of pelvis, protruding abdomen. Swelling in LE's with notable compression where socks were present. Palpation Assessment Location L hip Palpation Location L TFL, anterolateral jt line Palpation Findings Tenderness Palpation Details Tenderness with resisted hip AB & rolling of leg L knee Palpation Location No pain around joint or patella. L ankle Palpation Location No pain around joint. PT-OP-K Range of Motion Start: 10/09/23 18:05 Freq: Status: Active Protocol: Document 11/05/23 08:17 LRN (Rec: 11/05/23 09:13 LRN [id number]) Ankle and Foot Goniometric Range of Motion Ankle and Foot Right Active Testing Position Supine Dorsiflexion with Knee Extended 10 Plantarflexion 35 Inversion 35 Eversion 7 Left Active Testing Position Supine Dorsiflexion with Knee Flexed 12 Dorsiflexion with Knee Extended 53 Inversion 28 Eversion 1 PT-OP-L Special Tests Start: 10/09/23 18:05 Freq: Status: Active Protocol: Document 10/15/23 14:44 LRN (Rec: 10/15/23 16:43 LRN [id number]) Special Tests Lumbar Spine Special Tests Straight Leg Raise Test Results - bilaterally Comments ~90 deg's bilaterally. PT-OP-M Strength Start: 10/09/23 18:05 Freq: Status: Active Protocol: Document 10/15/23 14:44 LRN (Rec: 10/15/23 16:43 LRN [id number]) Hip Strength Hip Manual Muscle Testing Right Comments Generally 5/5. Left Abduction 3+ Fair+ Comments Pain with hip AB in lateral hip. Strength is 5/5 except as indicated above. Loss of rotational core stability with MMT of hip. Knee Strength Knee Manual Muscle Testing Right Comments Generally 5/5 Left Comments Generally 5/5 Ankle/Foot Strength Ankle and Foot Manual Muscle Testing Right Comments Generally 3/5 Left Comments Generally 5/5 PT-OP-Q Treatments Start: 10/09/23 18:05 Freq: Status: Active Protocol: Document 11/10/23 14:10 AB (Rec: 11/10/23 16:40 AB [id number]) Therapeutic Exercises Sitting Exercises Ankle DF Sitting Exercise Name Ankle DF Side left Equipment Used level 2 band Reps/Minutes 15x 2 Ankle IV/EV Sitting Exercise Name IV/EV Side left Equipment Used Lev 2 TB Reps/Minutes 15x 2 Comments Review of band positioning Standing Exercises squat Standing Exercise Name squat with and without band Side bilateral Resistance level 2 band Reps/Minutes 3X10 Comments post hip hinge training VC to squat to depth that is not painful heel raise Standing Exercise Name with UE support Side bilateral Reps/Minutes 3X10 Comments VC to lower heels to floor slowly for carryover into controlling fwd moment Neuro Re-Education Treatment Balance Activities shuttle Details feet on 4's then one foot fwd Equipment Shuttle Reps/Duration 4 minutes Comments VC to use bars as need for LOB step up taps Details touching stap without UE support Surface floor Equipment 4 inch step Reps/Duration X20 Comments VC to count backwards by 2's tandem stepping Details hands above parallel bars, CGA to close supervision Reps/Duration 10 feetX 2 Comments Verbal cues Coordination Activities stairs Details desc and asc stairs Equipment 4 six inch steps one rail used Reps/Duration X4 Comments patient ed rationale of descend/asce stairs with less quad dom pattern to decrease knee pain, VC and vis cues Self-Care/Home Management Treatment Education Other Education squat ( mini ) with band and HR added to HEP PT-OP-T Assessment and Plan Start: 10/09/23 18:05 Freq: Status: Active Protocol: Document 11/10/23 14:10 AB (Rec: 11/10/23 16:40 AB [id number]) Physical Therapy Assessment Goals Four Impairment Feeling weak in L ankle Short Term Goal (STG) Pt will be independent in HEP of ankle EV/IV stretching and SL balance ex's (core ex as needed). 10/20/23: HEP of active stretching: Ankle IV/EV, DF, Circles. 11/03/23: Reviewed HEP of SLS exer. STG Duration 4 wks-11/12/23 (11/03/23: MET GOAL, but can add core ex) Fpc Goal (LTG) Improve pt L ankle EV/IV ROM to increase pt ability to stabilize while walking on uneven ground (hiking). 11/05/23: Has walked 2 miles hiking slow walking but mostly level ground.; felt stability . LTG Duration 8 wks-12/11/23 Assessment Summary Assessment Gregg reports invigorated end of session. Patient was able to descend stairs using a rail with a less quad dominant pattern reporting and less left knee pain post training. Physical Therapy Plan Frequency and Duration Frequency of Treatment 2x/Week Duration of treatment (weeks) 8 Plan of Care Start Date 10/15/23 Plan of Care End Date 12/11/23 Therapeutic Interventions Therapeutic Interventions Home Exercise Program,Joint Mobilizations,Manual Therapy, Neuromuscular Re-education, Patient/Caregiver Education, Self-Care/Home Management,Soft Tissue Mobilization, Therapeutic Activities, Therapeutic Exercises Modalities Cold Pack/Ice Massage,Hot Packs,Ultrasound Next Visit Focus/Plan Next Note Type Treatment Note Next Visit Plan DC once pt on indep HEP, ?2 visits. Next: Review Balance ex's. Add Shuttle balance, f/b R ankle stretch, progress L ankle strengthening (PF). Educate in off lying on L hip if pain is with L sidelie. Issue HEP: Trunk rot and TA ( sup/sidelie) strengthening. POC: ankle stability ex's (PF ); CKC knee quad strengthening ; core stability with ex; Balance ex's. possibly eccentric HR progression, progress squat as able
--- NOTE | 2023-11-12 10:19 | PT.OTN ---
Current Diagnoses Pain in left hip (11/12/23) Pain in left knee (11/12/23) Pain in left ankle and joints of left foot (11/12/23) Physical Therapy Treatment Note PT-OP-A Visit Information Start: 10/09/23 18:05 Freq: Status: Active Protocol: Document 11/12/23 09:04 LRN (Rec: 11/12/23 09:47 LRN [id number]) Out-Patient Physical Therapy Visit Information Visit Information Visit Type Treatment Note Visit Start Time 09:04 Visit Stop Time 09:42 Visit Number 8 Number of FIRST FRONT VENTILATOR Visits 1 Evaluation Information Evaluation Date 10/15/23 Precautions Precautions Pt reports history of: Arthritis, back pain, vaso vagal syncope. 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 PT-OP-B Current Condition Start: 10/09/23 18:05 Freq: Status: Active Protocol: Document 10/15/23 14:44 LRN (Rec: 10/15/23 16:43 LRN [id number]) Current Condition History of Current Condition Onset Date 1 yr ago. Current Complaints No pain, L LE has made gait different, L knee unstable laterally. History of Current Condition 12-15 yrs ago developed weakness in L ankle. Going downhill ankle felt ankle could give way, but wasn't falling. L knee winter, slipped on ice with the L leg slipping under him and R leg went out in front of him (grabbed car with L arm), landing on L buttock. 2013 playing competetive baseball, 2016 missed the bottom 2 steps at home and landed like the previous fall of L leg under him. After 2 weeks of either incidents pain at lateral L knee and ramsey, went away. 1 yr ago L lateral hip and joint started bothering him. For months was on/off. Last 2 months the L lateral hip pain has been waking him. The last 2 weeks has had no nighttime pain. Biking feels like he is supported. KNEE PAIN WITH WLAKIKNG OR HIKING 6 MILES OR SO; HIP PAIN HAS ONLY BEEN WITH SLEEPING. HAS NOT HAD ANY HIP PAIN WITH WALKING. Prior Treatments and Tests X-rays (05/19/2023) showed arthritis in L hip and knee. Treatment Goals Patient/Caregiver Goals Pt goals: Maintanence HEP for stabilize/ strength LLE and to slow down degredation of L hip/knee/ ankle. If he has hip pain, no nighttime pain waking him up. Personal Factors Other Personal Factors That May Effect Arthritis, Walking [place] [facility] trail or [place] park 3x/wk ([place],000 steps) & home cable UE ex's- 2x/week. Pt has visible abdominal hernia. PT-OP-C Subjective Start: 10/09/23 18:05 Freq: Status: Active Protocol: Document 11/12/23 09:04 LRN (Rec: 11/12/23 09:47 LRN [id number]) OP-PT Subjective Patient Comments Patient Comments Reports mobility is improving. Can tie his shoes without having to put his foot up on something. PT-OP-G Mobility & Gait Start: 10/09/23 18:05 Freq: Status: Active Protocol: Document 10/15/23 14:44 LRN (Rec: 10/15/23 16:43 LRN [id number]) OP Gait Assessment Gait Gait Assistance Required: Independent Assistive Devices Assistive Device None Gait Deviations General Gait Pattern Within Normal Limits Comments Gait Comments Normal gait. Stair Climbing Evaluation Evaluation Level of Assist On Stairs Independent Devices Stair Climbing Assistive Devices None Technique/Endurance Stair Climbing Technique Step Over Step Comments Stair Climbing Comments Use of railing with stairs. PT-OP-H Neuro Start: 10/09/23 18:05 Freq: Status: Active Protocol: Document 10/15/23 14:44 LRN (Rec: 10/15/23 16:43 LRN [id number]) Sensation Evaluation Gross Sensation Gross Sensation WNL PT-OP-J Posture/Palpation/Skin Start: 10/09/23 18:05 Freq: Status: Active Protocol: Document 10/15/23 14:44 LRN (Rec: 10/15/23 16:43 LRN [id number]) Posture Evaluation Position Standing Head/C-Spine Posture Forward Head Shoulder Posture (L) Elevated Arm Posture (L) Internally Rotated,(R) Internally Rotated Pelvis Posture Anteriorly Tilted,(L) PSIS Posterior Hip Posture (L) Neutral,(R) Neutral Knee Posture (L) Neutral,(R) Neutral,(L) Int. Tibial Torsion,(R) Int. Tibial Torsion Patellar Posture (L) Laterally Tilted,(R) Laterally Tilted Ankle/Foot Posture (L) Pronated,(R) Pronated Foot Arch (R) Medium Arch,(L) Low Arch Comments Posture Comments Tilt upper body to R, mild anterior tilt of pelvis, protruding abdomen. Swelling in LE's with notable compression where socks were present. Palpation Assessment Location L hip Palpation Location L TFL, anterolateral jt line Palpation Findings Tenderness Palpation Details Tenderness with resisted hip AB & rolling of leg L knee Palpation Location No pain around joint or patella. L ankle Palpation Location No pain around joint. PT-OP-K Range of Motion Start: 10/09/23 18:05 Freq: Status: Active Protocol: Document 11/05/23 08:17 LRN (Rec: 11/05/23 09:13 LRN [id number]) Ankle and Foot Goniometric Range of Motion Ankle and Foot Right Active Testing Position Supine Dorsiflexion with Knee Extended 10 Plantarflexion 35 Inversion 35 Eversion 7 Left Active Testing Position Supine Dorsiflexion with Knee Flexed 12 Dorsiflexion with Knee Extended 53 Inversion 28 Eversion 1 PT-OP-L Special Tests Start: 10/09/23 18:05 Freq: Status: Active Protocol: Document 10/15/23 14:44 LRN (Rec: 10/15/23 16:43 LRN [id number]) Special Tests Lumbar Spine Special Tests Straight Leg Raise Test Results - bilaterally Comments ~90 deg's bilaterally. PT-OP-M Strength Start: 10/09/23 18:05 Freq: Status: Active Protocol: Document 10/15/23 14:44 LRN (Rec: 10/15/23 16:43 LRN [id number]) Hip Strength Hip Manual Muscle Testing Right Comments Generally 5/5. Left Abduction 3+ Fair+ Comments Pain with hip AB in lateral hip. Strength is 5/5 except as indicated above. Loss of rotational core stability with MMT of hip. Knee Strength Knee Manual Muscle Testing Right Comments Generally 5/5 Left Comments Generally 5/5 Ankle/Foot Strength Ankle and Foot Manual Muscle Testing Right Comments Generally 3/5 Left Comments Generally 5/5 PT-OP-Q Treatments Start: 10/09/23 18:05 Freq: Status: Active Protocol: Document 11/12/23 09:04 LRN (Rec: 11/12/23 09:47 LRN [id number]) Therapeutic Exercises Sitting Exercises Ankle DF Sitting Exercise Name Ankle DF Side left Equipment Used level 2 band Reps/Minutes 10x 3 Comments Review of band positioning Ankle IV/EV Sitting Exercise Name IV/EV Side left Equipment Used Lev 2 TB Reps/Minutes 10x 3 Comments Review of band positioning Standing Exercises squat Standing Exercise Name squat with and without band/TA tight Side bilateral Resistance level 2 band Reps/Minutes 3X10 Comments post hip hinge training VC knees over ankles, WB more on heels for glut >< heel raise Standing Exercise Name Heel raises w/feet in: neutral , EV, IV. Side bilateral Equipment Used Stair railing Reps/Minutes 3X10 Comments VC to WB on R big toe more w/ lifts lower heels to floor slowly Gait Training Gait Activity Toe off phase Description Walking with feet fwd and for toe off Level of Assistance VC's Treatment Focus WBing through toes at toe off and reduce foot EV with gait. Neuro Re-Education Treatment Balance Activities shuttle Details Center stance Equipment Shuttle/Red supports Comments VC to use bars as need for LOB PT-OP-T Assessment and Plan Start: 10/09/23 18:05 Freq: Status: Active Protocol: Document 11/12/23 09:04 LRN (Rec: 11/12/23 09:47 LRN [id number]) Physical Therapy Assessment Goals Four Impairment Feeling weak in L ankle Short Term Goal (STG) Pt will be independent in HEP of ankle EV/IV stretching and SL balance ex's (core ex as needed). 10/20/23: HEP of active stretching: Ankle IV/EV, DF, Circles. 11/03/23: Reviewed HEP of SLS exer. STG Duration 4 wks-11/12/23 (11/03/23: MET GOAL, but can add core ex) Prison Goal (LTG) Improve pt L ankle EV/IV ROM to increase pt ability to stabilize while walking on uneven ground (hiking). 11/05/23: Has walked 2 miles hiking slow walking but mostly level ground.; felt stability . LTG Duration 8 wks-12/11/23 Three Impairment L knee pain after walking. Short Term Goal (STG) Pt will be independent with knee flexion ROM ex. 10/20/23: HEP: KTC knee flex stretch STG Duration 2 wks-10/30/23 (10/20/23: MET GOAL) Prison Goal (LTG) Improve L knee flexion mobility to improve pt's abiltiy to anbulate for ex w/o onset of L lateral knee pain. 11/03/23: No pain with walking on level, some discomfort on decline angle. LTG Duration 8 wks-12/11/23 progressed One Impairment Pt lacks HEP. Short Term Goal (STG) Pt will be educated in self care pain management techniques (VIOLA, MH w/ stretches). Prison Goal (LTG) Pt will be educated in maintanence HEP for stabilize/ strength LLE and to slow down degredation of L hip/knee/ ankle. 10/20/23: HEP: L>R Hip stretches of KTC, Piriformis stretch (knee to opp shldr & KTC with ankle over knee, Lateral Hip stretch, Fig 4, Emeka test position hip flexor stretch (I/S can do from side of surface lying on) . 10/30/23: added TA hip abd and SLS review self HEP floor 1st while support 's HEP. LTG Duration 8 wks-12/11/23 progressed Assessment Summary Assessment 73 yo male with probable L hip arthritis (no pain at eval); prior to therapy had L anterior, lateral, and posterolateral hip pain. Pt able to walk stairs w/o pain. Improving in familiarity with ankle ex's. With balance , less control with tandem stance on Shuttle with R leg behind. Physical Therapy Plan Frequency and Duration Frequency of Treatment 2x/Week Duration of treatment (weeks) 8 Plan of Care Start Date 10/15/23 Plan of Care End Date 12/11/23 Next Visit Focus/Plan Next Note Type Treatment Note Next Visit Plan DC once pt on indep HEP. Next: Review Balance HEP. Add ankle stretch after shuttle balance, progress L ankle strengthening (PF). Educate in off lying on L hip if pain is with L sidelie. Issue HEP: Trunk rot and TA ( sup/sidelie) strengthening. POC: ankle stability ex's (PF ); CKC knee quad strengthening ; core stability with ex; Balance ex's. `
--- NOTE | 2023-11-16 18:04 | PT.OTN ---
Current Diagnoses Pain in left hip (11/16/23) Pain in left knee (11/16/23) Pain in left ankle and joints of left foot (11/16/23) Physical Therapy Treatment Note PT-OP-A Visit Information Start: 10/09/23 18:05 Freq: Status: Active Protocol: Document 11/16/23 10:57 NBM (Rec: 11/16/23 13:06 NBM [id number]) Out-Patient Physical Therapy Visit Information Visit Information Visit Type Treatment Note Visit Start Time 10:37 Visit Stop Time 11:17 Visit Number 9 Number of HOTBED OPERATOR Visits 1 PT-OP-B Current Condition Start: 10/09/23 18:05 Freq: Status: Active Protocol: Document 10/15/23 14:44 LRN (Rec: 10/15/23 16:43 LRN [id number]) Current Condition History of Current Condition Onset Date 1 yr ago. Current Complaints No pain, L LE has made gait different, L knee unstable laterally. History of Current Condition 12-15 yrs ago developed weakness in L ankle. Going downhill ankle felt ankle could give way, but wasn't falling. L knee winter, slipped on ice with the L leg slipping under him and R leg went out in front of him (grabbed car with L arm), landing on L buttock. 2013 playing competetive baseball, 2016 missed the bottom 2 steps at home and landed like the previous fall of L leg under him. After 2 weeks of either incidents pain at lateral L knee and ramsey, went away. 1 yr ago L lateral hip and joint started bothering him. For months was on/off. Last 2 months the L lateral hip pain has been waking him. The last 2 weeks has had no nighttime pain. Biking feels like he is supported. KNEE PAIN WITH WLAKIKNG OR HIKING 6 MILES OR SO; HIP PAIN HAS ONLY BEEN WITH SLEEPING. HAS NOT HAD ANY HIP PAIN WITH WALKING. Prior Treatments and Tests X-rays (05/19/2023) showed arthritis in L hip and knee. Treatment Goals Patient/Caregiver Goals Pt goals: Maintanence HEP for stabilize/ strength LLE and to slow down degredation of L hip/knee/ ankle. If he has hip pain, no nighttime pain waking him up. Personal Factors Other Personal Factors That May Effect Arthritis, Walking [facility]/Recovery trail or [place] park 3x/wk (10,000 steps) & home cable UE ex's- 2x/week. Pt has visible abdominal hernia. PT-OP-C Subjective Start: 10/09/23 18:05 Freq: Status: Active Protocol: Document 11/16/23 10:57 NBM (Rec: 11/16/23 13:06 NBM [id number]) OP-PT Subjective Patient Comments Patient Comments Pt reports flexibility continues to improve since starting PT. He looked at his shoes and saw that his L heel is wearing noticeably faster than R heel. He is consistent with his stretches but not his ankle or balance ex's because they are more challenging or kind of boring. PT-OP-G Mobility & Gait Start: 10/09/23 18:05 Freq: Status: Active Protocol: Document 10/15/23 14:44 LRN (Rec: 10/15/23 16:43 LRN [id number]) OP Gait Assessment Gait Gait Assistance Required: Independent Assistive Devices Assistive Device None Gait Deviations General Gait Pattern Within Normal Limits Comments Gait Comments Normal gait. Stair Climbing Evaluation Evaluation Level of Assist On Stairs Independent Devices Stair Climbing Assistive Devices None Technique/Endurance Stair Climbing Technique Step Over Step Comments Stair Climbing Comments Use of railing with stairs. PT-OP-H Neuro Start: 10/09/23 18:05 Freq: Status: Active Protocol: Document 10/15/23 14:44 LRN (Rec: 10/15/23 16:43 LRN [id number]) Sensation Evaluation Gross Sensation Gross Sensation WNL PT-OP-J Posture/Palpation/Skin Start: 10/09/23 18:05 Freq: Status: Active Protocol: Document 10/15/23 14:44 LRN (Rec: 10/15/23 16:43 LRN [id number]) Posture Evaluation Position Standing Head/C-Spine Posture Forward Head Shoulder Posture (L) Elevated Arm Posture (L) Internally Rotated,(R) Internally Rotated Pelvis Posture Anteriorly Tilted,(L) PSIS Posterior Hip Posture (L) Neutral,(R) Neutral Knee Posture (L) Neutral,(R) Neutral,(L) Int. Tibial Torsion,(R) Int. Tibial Torsion Patellar Posture (L) Laterally Tilted,(R) Laterally Tilted Ankle/Foot Posture (L) Pronated,(R) Pronated Foot Arch (R) Medium Arch,(L) Low Arch Comments Posture Comments Tilt upper body to R, mild anterior tilt of pelvis, protruding abdomen. Swelling in LE's with notable compression where socks were present. Palpation Assessment Location L hip Palpation Location L TFL, anterolateral jt line Palpation Findings Tenderness Palpation Details Tenderness with resisted hip AB & rolling of leg L knee Palpation Location No pain around joint or patella. L ankle Palpation Location No pain around joint. PT-OP-K Range of Motion Start: 10/09/23 18:05 Freq: Status: Active Protocol: Document 11/05/23 08:17 LRN (Rec: 11/05/23 09:13 LRN [id number]) Ankle and Foot Goniometric Range of Motion Ankle and Foot Right Active Testing Position Supine Dorsiflexion with Knee Extended 10 Plantarflexion 35 Inversion 35 Eversion 7 Left Active Testing Position Supine Dorsiflexion with Knee Flexed 12 Dorsiflexion with Knee Extended 53 Inversion 28 Eversion 1 PT-OP-L Special Tests Start: 10/09/23 18:05 Freq: Status: Active Protocol: Document 10/15/23 14:44 LRN (Rec: 10/15/23 16:43 LRN [id number]) Special Tests Lumbar Spine Special Tests Straight Leg Raise Test Results - bilaterally Comments ~90 deg's bilaterally. PT-OP-M Strength Start: 10/09/23 18:05 Freq: Status: Active Protocol: Document 10/15/23 14:44 LRN (Rec: 10/15/23 16:43 LRN [id number]) Hip Strength Hip Manual Muscle Testing Right Comments Generally 5/5. Left Abduction 3+ Fair+ Comments Pain with hip AB in lateral hip. Strength is 5/5 except as indicated above. Loss of rotational core stability with MMT of hip. Knee Strength Knee Manual Muscle Testing Right Comments Generally 5/5 Left Comments Generally 5/5 Ankle/Foot Strength Ankle and Foot Manual Muscle Testing Right Comments Generally 3/5 Left Comments Generally 5/5 PT-OP-Q Treatments Start: 10/09/23 18:05 Freq: Status: Active Protocol: Document 11/16/23 10:57 NBM (Rec: 11/16/23 13:06 NBM [id number]) Therapeutic Exercises Sitting Exercises Ankle DF Sitting Exercise Name Ankle DF Side left Equipment Used level 2 band Reps/Minutes 10x 3 Comments Review of band positioning and loop option Ankle IV/EV Sitting Exercise Name IV/EV Side left Equipment Used Lev 2 TB Reps/Minutes 10x 3 Comments Review of band positioning and loop option Standing Exercises squat Standing Exercise Name squat without band/TA tight Side bilateral Resistance level 2 band Reps/Minutes 2X10 Comments post hip hinge training VC knees over ankles, WB more on heels for glut >< heel raise Standing Exercise Name Heel raises w/feet in: neutral , EV, IV. Side bilateral Equipment Used Stair railing Reps/Minutes 3X10 Comments VC to WB on R big toe more w/ lifts lower heels to floor slowly Neuro Re-Education Treatment Balance Activities shuttle Details Center stance: WBOS, NBOS, Staggered rachel Equipment Shuttle/Red supports Comments VC to use bars as need for LOB Each stance: Still board using upright posture and fixed focal point>head turns>Eyes Closed, a/p weightshifting w/ upright posture w/ cues for eccentric control and gluteal activation Self-Care/Home Management Treatment Education Patient Education Home Exercise Program,Joint Protection,Posture Other Education Discussion w/ pt encouraging greater consistency w/ ex's pt finds more challenging or difficult such as resisted ankle ex's and balance ex's and explanation for how these tie into pt's goals. Pt reports band positioning confusion is a barrier at times so positioning reviewed this visit and band looped at one end with postive pt feedback for ease of use. Pt edu: that increased practice with balance ex's at home will increase carryover response; he has friendly competition with friend and is encouraged to challenge friend to safe balance ex's for hold time in each stance to increase motivation. PT-OP-T Assessment and Plan Start: 10/09/23 18:05 Freq: Status: Active Protocol: Document 11/16/23 10:57 [facility] (Rec: 11/16/23 13:06 [facility] [id number]) Physical Therapy Assessment Goals Four Impairment Feeling weak in L ankle Short Term Goal (STG) Pt will be independent in HEP of ankle EV/IV stretching and SL balance ex's (core ex as needed). 10/20/23: HEP of active stretching: Ankle IV/EV, DF, Circles. 11/03/23: Reviewed HEP of SLS exer. 11/16/23: Reviewed HEP resisted ankle ex's DF, IV/EV - modified Lvl 2 Tb to a loop - cued eccentric control. STG Duration 4 wks-11/12/23 (11/03/23: MET GOAL, but can add core ex) Prison Goal (LTG) Improve pt L ankle EV/IV ROM to increase pt ability to stabilize while walking on uneven ground (hiking). 11/05/23: Has walked 2 miles hiking slow walking but mostly level ground.; felt stability . 11/08/23: Reviewed HEP resisted ankle ex's DF, IV/EV - modified Lvl 2 Tb to a loop - cued eccentric control. LTG Duration 8 wks-12/11/23 Three Impairment L knee pain after walking. Short Term Goal (STG) Pt will be independent with knee flexion ROM ex. 10/20/23: HEP: KTC knee flex stretch STG Duration 2 wks-10/30/23 (10/20/23: MET GOAL) Prison Goal (LTG) Improve L knee flexion mobility to improve pt's abiltiy to anbulate for ex w/o onset of L lateral knee pain. 11/03/23: No pain with walking on level, some discomfort on decline angle. 11/16/23: No change. LTG Duration 8 wks-12/11/23 progressed One Impairment Pt lacks HEP. Short Term Goal (STG) Pt will be educated in self care pain management techniques (TRICE ROD w/ stretches). Prison Goal (LTG) Pt will be educated in maintanence HEP for stabilize/ strength LLE and to slow down degredation of L hip/knee/ ankle. 10/20/23: HEP: L>R Hip stretches of KTC, Piriformis stretch (knee to opp shldr & KTC with ankle over knee, Lateral Hip stretch, Fig 4, Emeka test position hip flexor stretch (I/S can do from side of surface lying on) . 10/30/23: added TA hip abd and SLS review self HEP floor 1st while support 's HEP. LTG Duration 8 wks-12/11/23 progressed Assessment Summary Assessment Treatment focus on HEP review of ex's performed least as reported by Gregg (resisted ankle ex's and balance ex's). He requires initial cues for eccentric control w/ resisted ankle ex's and cues for hip hinge with mini squats. Gregg is challenged on Shuttle Balance most with Eyes closed, and with head turns. He demonstrates improved gluteal recruitment and ankle strategy with initial cueing and repetition. Discussion with pt encouraging greater consistency with ex's pt finds more challenging or difficult such as resisted ankle ex's and balance ex's. Pt reports band positioning confusion is a barrier at times so positioning reviewed this visit and band looped at one end with postive pt feedback for ease of use. Pt edu: that increased practice with balance ex's at home will increase carryover response; he has friendly competition with friend and is encouraged to challenge friend to safe balance ex's w/ UE support as needed for hold time in each stance to increase motivation. Physical Therapy Plan Frequency and Duration Frequency of Treatment 2x/Week Duration of treatment (weeks) 8 Plan of Care Start Date 10/15/23 Plan of Care End Date 12/11/23 Therapeutic Interventions Therapeutic Interventions Home Exercise Program,Joint Mobilizations,Manual Therapy, Neuromuscular Re-education, Patient/Caregiver Education, Self-Care/Home Management,Soft Tissue Mobilization, Therapeutic Activities, Therapeutic Exercises Modalities Cold Pack/Ice Massage,Hot Packs,Ultrasound Next Visit Focus/Plan Next Note Type Treatment Note Next Visit Plan DC once pt on indep HEP. Next: Review Balance HEP. Add ankle stretch after shuttle balance, progress L ankle strengthening (PF). Educate in off lying on L hip if pain is with L sidelie. Issue HEP: Trunk rot and TA ( sup/sidelie) strengthening. POC: ankle stability ex's (PF ); CKC knee quad strengthening ; core stability with ex; Balance ex's. `
--- NOTE | 2023-11-19 16:16 | PT.OTN ---
Current Diagnoses Pain in left hip (11/19/23) Pain in left knee (11/19/23) Pain in left ankle and joints of left foot (11/19/23) Physical Therapy Treatment Note PT-OP-A Visit Information Start: 10/09/23 18:05 Freq: Status: Active Protocol: Document 11/19/23 09:25 SW (Rec: 11/19/23 10:32 SW [id number]) Out-Patient Physical Therapy Visit Information Visit Information Visit Type Treatment Note Visit Start Time 09:45 Visit Stop Time 10:25 Visit Number 10 Number of PEDIATRICIAN Visits 2 Precautions Precautions Pt reports history of: Arthritis, back pain, vaso vagal syncope. 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 PT-OP-B Current Condition Start: 10/09/23 18:05 Freq: Status: Active Protocol: Document 10/15/23 14:44 LRN (Rec: 10/15/23 16:43 LRN [id number]) Current Condition History of Current Condition Onset Date 1 yr ago. Current Complaints No pain, L LE has made gait different, L knee unstable laterally. History of Current Condition 12-15 yrs ago developed weakness in L ankle. Going downhill ankle felt ankle could give way, but wasn't falling. L knee winter, slipped on ice with the L leg slipping under him and R leg went out in front of him (grabbed car with L arm), landing on L buttock. 2013 playing competetive baseball, 2016 missed the bottom 2 steps at home and landed like the previous fall of L leg under him. After 2 weeks of either incidents pain at lateral L knee and ramsey, went away. 1 yr ago L lateral hip and joint started bothering him. For months was on/off. Last 2 months the L lateral hip pain has been waking him. The last 2 weeks has had no nighttime pain. Biking feels like he is supported. KNEE PAIN WITH WLAKIKNG OR HIKING 6 MILES OR SO; HIP PAIN HAS ONLY BEEN WITH SLEEPING. HAS NOT HAD ANY HIP PAIN WITH WALKING. Prior Treatments and Tests X-rays (05/19/2023) showed arthritis in L hip and knee. Treatment Goals Patient/Caregiver Goals Pt goals: Maintanence HEP for stabilize/ strength LLE and to slow down degredation of L hip/knee/ ankle. If he has hip pain, no nighttime pain waking him up. Personal Factors Other Personal Factors That May Effect Arthritis, Walking [facility] trail or [place] park 3x/wk (10,000 steps) & home cable UE ex's- 2x/week. Pt has visible abdominal hernia. PT-OP-C Subjective Start: 10/09/23 18:05 Freq: Status: Active Protocol: Document 11/19/23 09:25 SW (Rec: 11/19/23 10:32 SW [id number]) OP-PT Subjective Patient Comments Patient Comments Pt reports biggest notice is in flexibility. PT-OP-G Mobility & Gait Start: 10/09/23 18:05 Freq: Status: Active Protocol: Document 10/15/23 14:44 LRN (Rec: 10/15/23 16:43 LRN [id number]) OP Gait Assessment Gait Gait Assistance Required: Independent Assistive Devices Assistive Device None Gait Deviations General Gait Pattern Within Normal Limits Comments Gait Comments Normal gait. Stair Climbing Evaluation Evaluation Level of Assist On Stairs Independent Devices Stair Climbing Assistive Devices None Technique/Endurance Stair Climbing Technique Step Over Step Comments Stair Climbing Comments Use of railing with stairs. PT-OP-H Neuro Start: 10/09/23 18:05 Freq: Status: Active Protocol: Document 10/15/23 14:44 LRN (Rec: 10/15/23 16:43 LRN [id number]) Sensation Evaluation Gross Sensation Gross Sensation WNL PT-OP-J Posture/Palpation/Skin Start: 10/09/23 18:05 Freq: Status: Active Protocol: Document 10/15/23 14:44 LRN (Rec: 10/15/23 16:43 LRN [id number]) Posture Evaluation Position Standing Head/C-Spine Posture Forward Head Shoulder Posture (L) Elevated Arm Posture (L) Internally Rotated,(R) Internally Rotated Pelvis Posture Anteriorly Tilted,(L) PSIS Posterior Hip Posture (L) Neutral,(R) Neutral Knee Posture (L) Neutral,(R) Neutral,(L) Int. Tibial Torsion,(R) Int. Tibial Torsion Patellar Posture (L) Laterally Tilted,(R) Laterally Tilted Ankle/Foot Posture (L) Pronated,(R) Pronated Foot Arch (R) Medium Arch,(L) Low Arch Comments Posture Comments Tilt upper body to R, mild anterior tilt of pelvis, protruding abdomen. Swelling in LE's with notable compression where socks were present. Palpation Assessment Location L hip Palpation Location L TFL, anterolateral jt line Palpation Findings Tenderness Palpation Details Tenderness with resisted hip AB & rolling of leg L knee Palpation Location No pain around joint or patella. L ankle Palpation Location No pain around joint. PT-OP-K Range of Motion Start: 10/09/23 18:05 Freq: Status: Active Protocol: Document 11/05/23 08:17 LRN (Rec: 11/05/23 09:13 LRN [id number]) Ankle and Foot Goniometric Range of Motion Ankle and Foot Right Active Testing Position Supine Dorsiflexion with Knee Extended 10 Plantarflexion 35 Inversion 35 Eversion 7 Left Active Testing Position Supine Dorsiflexion with Knee Flexed 12 Dorsiflexion with Knee Extended 53 Inversion 28 Eversion 1 PT-OP-L Special Tests Start: 10/09/23 18:05 Freq: Status: Active Protocol: Document 10/15/23 14:44 LRN (Rec: 10/15/23 16:43 LRN [id number]) Special Tests Lumbar Spine Special Tests Straight Leg Raise Test Results - bilaterally Comments ~90 deg's bilaterally. PT-OP-M Strength Start: 10/09/23 18:05 Freq: Status: Active Protocol: Document 10/15/23 14:44 LRN (Rec: 10/15/23 16:43 LRN [id number]) Hip Strength Hip Manual Muscle Testing Right Comments Generally 5/5. Left Abduction 3+ Fair+ Comments Pain with hip AB in lateral hip. Strength is 5/5 except as indicated above. Loss of rotational core stability with MMT of hip. Knee Strength Knee Manual Muscle Testing Right Comments Generally 5/5 Left Comments Generally 5/5 Ankle/Foot Strength Ankle and Foot Manual Muscle Testing Right Comments Generally 3/5 Left Comments Generally 5/5 PT-OP-Q Treatments Start: 10/09/23 18:05 Freq: Status: Active Protocol: Document 11/19/23 09:25 SW (Rec: 11/19/23 10:32 SW [id number]) Therapeutic Exercises Sitting Exercises Ankle DF Sitting Exercise Name Ankle DF Side left Equipment Used level 2 band Reps/Minutes 10x 3 Comments Review of band positioning and loop option Ankle IV/EV Sitting Exercise Name IV/EV Side left Equipment Used Lev 2 TB Reps/Minutes 10x 3 Comments Review of band positioning and loop option Standing Exercises squat Standing Exercise Name squat without band/TA tight Side bilateral Resistance level 2 band Reps/Minutes 2X10 Comments post hip hinge training VC knees over ankles, WB more on heels for glut >< heel raise Standing Exercise Name Heel raises w/feet in: neutral , EV, IV. Side bilateral Equipment Used Stair railing Reps/Minutes 3X10 Comments VC to WB on R big toe more w/ lifts lower heels to floor slowly Neuro Re-Education Treatment Balance Activities Rocker board Details lateral weight shift Surface unstable Equipment rocker board @ ballet bar Reps/Duration x 3 min shuttle Details Center stance: WBOS, NBOS, fwd /bck, lateral Equipment Shuttle/Red supports Comments VC to use bars as need for LOB Each stance: Still board using upright posture and fixed focal point, head turns, a/p weightshifting w/ upright posture w/ cues for eccentric control and gluteal activation , lateral weight shift WBOS PT-OP-T Assessment and Plan Start: 10/09/23 18:05 Freq: Status: Active Protocol: Document 11/19/23 09:25 (Rec: 11/19/23 10:32 [id number]) Physical Therapy Assessment Goals Four Impairment Feeling weak in L ankle Short Term Goal (STG) Pt will be independent in HEP of ankle EV/IV stretching and SL balance ex's (core ex as needed). 10/20/23: HEP of active stretching: Ankle IV/EV, DF, Circles. 11/03/23: Reviewed HEP of SLS exer. 11/16/23: Reviewed HEP resisted ankle ex's DF, IV/EV - modified Lvl 2 Tb to a loop - cued eccentric control. STG Duration 4 wks-11/12/23 (11/03/23: MET GOAL, but can add core ex) [facility] Goal (LTG) Improve pt L ankle EV/IV ROM to increase pt ability to stabilize while walking on uneven ground (hiking). 11/05/23: Has walked 2 miles hiking slow walking but mostly level ground.; felt stability . 11/08/23: Reviewed HEP resisted ankle ex's DF, IV/EV - modified Lvl 2 Tb to a loop - cued eccentric control. LTG Duration 8 wks-12/11/23 Three Impairment L knee pain after walking. Short Term Goal (STG) Pt will be independent with knee flexion ROM ex. 10/20/23: HEP: KTC knee flex stretch STG Duration 2 wks-10/30/23 (10/20/23: MET GOAL) [facility] Goal (LTG) Improve L knee flexion mobility to improve pt's abiltiy to anbulate for ex w/o onset of L lateral knee pain. 11/03/23: No pain with walking on level, some discomfort on decline angle. 11/16/23: No change. LTG Duration 8 wks-12/11/23 progressed One Impairment Pt lacks HEP. Short Term Goal (STG) Pt will be educated in self care pain management techniques (VIOLA, MH w/ stretches). Branch Service Leader Goal (LTG) Pt will be educated in maintanence HEP for stabilize/ strength LLE and to slow down degredation of L hip/knee/ ankle. 10/20/23: HEP: L>R Hip stretches of KTC, Piriformis stretch (knee to opp shldr & KTC with ankle over knee, Lateral Hip stretch, Fig 4, Emeka test position hip flexor stretch (I/S can do from side of surface lying on) . 10/30/23: added TA hip abd and SLS review self HEP floor 1st while support 's HEP. LTG Duration 8 wks-12/11/23 progressed Assessment Summary Assessment Reviewed PT HEP exercises pt brought HEP HOs into session today, pt education on setup and answered pt questions on execution and hold times. Reviewed squats for strengthening, with focus on hip hinge, cues for mechanics. Continued balance challenges, difficulty with lateral balance on shuttle requiring frequent PATIENT REGISTRATION REP for LOB,CGA, trialed lateral weight shift on rocker board pt tolerated well with minimal PATIENT REGISTRATION REP required . Physical Therapy Plan Frequency and Duration Frequency of Treatment 2x/Week Duration of treatment (weeks) 8 Plan of Care Start Date 10/15/23 Plan of Care End Date 12/11/23 Therapeutic Interventions Therapeutic Interventions Home Exercise Program,Joint Mobilizations,Manual Therapy, Neuromuscular Re-education, Patient/Caregiver Education, Self-Care/Home Management,Soft Tissue Mobilization, Therapeutic Activities, Therapeutic Exercises Modalities Cold Pack/Ice Massage,Hot Packs,Ultrasound Next Visit Focus/Plan Next Note Type Treatment Note Next Visit Plan DC once pt on indep HEP. Next: Review Balance HEP -. Add ankle stretch after shuttle balance, progress L ankle strengthening (PF). Educate in off lying on L hip if pain is with L sidelie. Issue HEP: Trunk rot and TA ( sup/sidelie) strengthening. POC: ankle stability ex's (PF ); CKC knee quad strengthening ; core stability with ex; Balance ex's. `
--- NOTE | 2023-11-26 12:38 | PT.OTN ---
Current Diagnoses Pain in left hip (11/26/23) Pain in left knee (11/26/23) Pain in left ankle and joints of left foot (11/26/23) Physical Therapy Treatment Note PT-OP-A Visit Information Start: 10/09/23 18:05 Freq: Status: Active Protocol: Document 11/26/23 09:45 SW (Rec: 11/26/23 12:21 SW [id number]) Out-Patient Physical Therapy Visit Information Visit Information Visit Type Treatment Note Visit Start Time 09:45 Visit Stop Time 10:30 Visit Number 11 Number of NEWS WRITER Visits 3 Precautions Precautions Pt reports history of: Arthritis, back pain, vaso vagal syncope. 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 PT-OP-B Current Condition Start: 10/09/23 18:05 Freq: Status: Active Protocol: Document 10/15/23 14:44 LRN (Rec: 10/15/23 16:43 LRN [id number]) Current Condition History of Current Condition Onset Date 1 yr ago. Current Complaints No pain, L LE has made gait different, L knee unstable laterally. History of Current Condition 12-15 yrs ago developed weakness in L ankle. Going downhill ankle felt ankle could give way, but wasn't falling. L knee winter, slipped on ice with the L leg slipping under him and R leg went out in front of him (grabbed car with L arm), landing on L buttock. 2013 playing competetive baseball, 2016 missed the bottom 2 steps at home and landed like the previous fall of L leg under him. After 2 weeks of either incidents pain at lateral L knee and ramsey, went away. 1 yr ago L lateral hip and joint started bothering him. For months was on/off. Last 2 months the L lateral hip pain has been waking him. The last 2 weeks has had no nighttime pain. Biking feels like he is supported. KNEE PAIN WITH WLAKIKNG OR HIKING 6 MILES OR SO; HIP PAIN HAS ONLY BEEN WITH SLEEPING. HAS NOT HAD ANY HIP PAIN WITH WALKING. Prior Treatments and Tests X-rays (05/19/2023) showed arthritis in L hip and knee. Treatment Goals Patient/Caregiver Goals Pt goals: Maintanence HEP for stabilize/ strength LLE and to slow down degredation of L hip/knee/ ankle. If he has hip pain, no nighttime pain waking him up. Personal Factors Other Personal Factors That May Effect Arthritis, Walking [facility]/Recovery trail or [place] park 3x/wk (10,000 steps) & home cable UE ex's- 2x/week. Pt has visible abdominal hernia. PT-OP-C Subjective Start: 10/09/23 18:05 Freq: Status: Active Protocol: Document 11/26/23 09:45 SW (Rec: 11/26/23 12:21 SW [id number]) OP-PT Subjective Patient Comments Patient Comments Pt reports has not done a lot with HEP this week. Has not done a lot to trigger any reproduction of pain. PT-OP-G Mobility & Gait Start: 10/09/23 18:05 Freq: Status: Active Protocol: Document 10/15/23 14:44 LRN (Rec: 10/15/23 16:43 LRN [id number]) OP Gait Assessment Gait Gait Assistance Required: Independent Assistive Devices Assistive Device None Gait Deviations General Gait Pattern Within Normal Limits Comments Gait Comments Normal gait. Stair Climbing Evaluation Evaluation Level of Assist On Stairs Independent Devices Stair Climbing Assistive Devices None Technique/Endurance Stair Climbing Technique Step Over Step Comments Stair Climbing Comments Use of railing with stairs. PT-OP-H Neuro Start: 10/09/23 18:05 Freq: Status: Active Protocol: Document 10/15/23 14:44 LRN (Rec: 10/15/23 16:43 LRN [id number]) Sensation Evaluation Gross Sensation Gross Sensation WNL PT-OP-J Posture/Palpation/Skin Start: 10/09/23 18:05 Freq: Status: Active Protocol: Document 10/15/23 14:44 LRN (Rec: 10/15/23 16:43 LRN [id number]) Posture Evaluation Position Standing Head/C-Spine Posture Forward Head Shoulder Posture (L) Elevated Arm Posture (L) Internally Rotated,(R) Internally Rotated Pelvis Posture Anteriorly Tilted,(L) PSIS Posterior Hip Posture (L) Neutral,(R) Neutral Knee Posture (L) Neutral,(R) Neutral,(L) Int. Tibial Torsion,(R) Int. Tibial Torsion Patellar Posture (L) Laterally Tilted,(R) Laterally Tilted Ankle/Foot Posture (L) Pronated,(R) Pronated Foot Arch (R) Medium Arch,(L) Low Arch Comments Posture Comments Tilt upper body to R, mild anterior tilt of pelvis, protruding abdomen. Swelling in LE's with notable compression where socks were present. Palpation Assessment Location L hip Palpation Location L TFL, anterolateral jt line Palpation Findings Tenderness Palpation Details Tenderness with resisted hip AB & rolling of leg L knee Palpation Location No pain around joint or patella. L ankle Palpation Location No pain around joint. PT-OP-K Range of Motion Start: 10/09/23 18:05 Freq: Status: Active Protocol: Document 11/05/23 08:17 LRN (Rec: 11/05/23 09:13 LRN [id number]) Ankle and Foot Goniometric Range of Motion Ankle and Foot Right Active Testing Position Supine Dorsiflexion with Knee Extended 10 Plantarflexion 35 Inversion 35 Eversion 7 Left Active Testing Position Supine Dorsiflexion with Knee Flexed 12 Dorsiflexion with Knee Extended 53 Inversion 28 Eversion 1 PT-OP-L Special Tests Start: 10/09/23 18:05 Freq: Status: Active Protocol: Document 10/15/23 14:44 LRN (Rec: 10/15/23 16:43 LRN [id number]) Special Tests Lumbar Spine Special Tests Straight Leg Raise Test Results - bilaterally Comments ~90 deg's bilaterally. PT-OP-M Strength Start: 10/09/23 18:05 Freq: Status: Active Protocol: Document 10/15/23 14:44 LRN (Rec: 10/15/23 16:43 LRN [id number]) Hip Strength Hip Manual Muscle Testing Right Comments Generally 5/5. Left Abduction 3+ Fair+ Comments Pain with hip AB in lateral hip. Strength is 5/5 except as indicated above. Loss of rotational core stability with MMT of hip. Knee Strength Knee Manual Muscle Testing Right Comments Generally 5/5 Left Comments Generally 5/5 Ankle/Foot Strength Ankle and Foot Manual Muscle Testing Right Comments Generally 3/5 Left Comments Generally 5/5 PT-OP-Q Treatments Start: 10/09/23 18:05 Freq: Status: Active Protocol: Document 11/26/23 09:45 SW (Rec: 11/26/23 12:21 SW [id number]) Cardio Equipment Recumbent Stepper (Sci-Fit) Duration (Minutes) 10 Resistance 4 Seat Position 13 Other warm up, strength, HEP review/ pt education Therapeutic Exercises Sidelying Exercises hip abd Sidelying Exercise Name added to HEP Side bilateral Resistance AROM Reps/Minutes x15 Comments cued stacked on side little fwd, DF neutral, TA, hip abd lift- good mus tir Sitting Exercises Trunk rot Sitting Exercise Name Active trunk rot for deep rotator strengthening Side bilateral Comments Cuing for drawing ribs inward Ankle DF Sitting Exercise Name Ankle DF Side left Equipment Used level 2 band Reps/Minutes 10x 3 Comments Review of band positioning and loop option Ankle IV/EV Sitting Exercise Name IV/EV Side left Equipment Used Lev 2 TB Reps/Minutes 10x 3 Comments Review of band positioning and loop option Standing Exercises Toe raises Standing Exercise Name Trialed in PT Side bilateral Comments cues to avoid compensation, help decrease hip flex compens . vs in sitting heel raise Standing Exercise Name Heel raises w/feet in: neutral , EV, IV. Side bilateral Equipment Used // bar Reps/Minutes 3X10 Comments VC to WB on R big toe more w/ lifts lower heels to floor slowly PT-OP-T Assessment and Plan Start: 10/09/23 18:05 Freq: Status: Active Protocol: Document 11/26/23 09:45 SW (Rec: 11/26/23 12:21 SW [id number]) Physical Therapy Assessment Goals Four Impairment Feeling weak in L ankle Short Term Goal (STG) Pt will be independent in HEP of ankle EV/IV stretching and SL balance ex's (core ex as needed). 10/20/23: HEP of active stretching: Ankle IV/EV, DF, Circles. 11/03/23: Reviewed HEP of SLS exer. 11/16/23: Reviewed HEP resisted ankle ex's DF, IV/EV - modified Lvl 2 Tb to a loop - cued eccentric control. STG Duration 4 wks-11/12/23 (11/03/23: MET GOAL, but can add core ex) Custodial Goal (LTG) Improve pt L ankle EV/IV ROM to increase pt ability to stabilize while walking on uneven ground (hiking). 11/05/23: Has walked 2 miles hiking slow walking but mostly level ground.; felt stability . 11/08/23: Reviewed HEP resisted ankle ex's DF, IV/EV - modified Lvl 2 Tb to a loop - cued eccentric control. LTG Duration 8 wks-03/08/24 Three Impairment L knee pain after walking. Short Term Goal (STG) Pt will be independent with knee flexion ROM ex. 10/20/23: HEP: KTC knee flex stretch STG Duration 2 wks-10/30/23 (10/20/23: MET GOAL) Custodial Goal (LTG) Improve L knee flexion mobility to improve pt's abiltiy to anbulate for ex w/o onset of L lateral knee pain. 11/03/23: No pain with walking on level, some discomfort on decline angle. 11/16/23: No change. LTG Duration 8 wks-12/11/23 progressed One Impairment Pt lacks HEP. Short Term Goal (STG) Pt will be educated in self care pain management techniques (VI[place], MH w/ stretches). Real Estate Services Coordinator Goal (LTG) Pt will be educated in maintanence HEP for stabilize/ strength LLE and to slow down degredation of L hip/knee/ ankle. 10/20/23: HEP: L>R Hip stretches of KTC, Piriformis stretch (knee to opp shldr & KTC with ankle over knee, Lateral Hip stretch, Fig 4, Emeka test position hip flexor stretch (I/S can do from side of surface lying on) . 10/30/23: added TA hip abd and SLS review self HEP floor 1st while support 's HEP. LTG Duration 8 wks-12/11/23 progressed Assessment Summary Assessment Pt required verbal/tactile facilitation to decrease hip flex compensation during DF strengthening exercise, improved with repetition, trialed in standing today to assist with compensation @ rail. Treatment focused on strengthening this session and HEP questions/progression prn . Pt calls out feeling it in calf during DF strengthening issued, HEP HO for gastroc/ soleus stretch, good feedback. Encouraged pt carryover with HEP for pt progress. Physical Therapy Plan Frequency and Duration Frequency of Treatment 2x/Week Duration of treatment (weeks) 8 Plan of Care Start Date 10/15/23 Plan of Care End Date 12/11/23 Therapeutic Interventions Therapeutic Interventions Home Exercise Program,Joint Mobilizations,Manual Therapy, Neuromuscular Re-education, Patient/Caregiver Education, Self-Care/Home Management,Soft Tissue Mobilization, Therapeutic Activities, Therapeutic Exercises Modalities Cold Pack/Ice Massage,Hot Packs,Ultrasound Next Visit Focus/Plan Next Note Type Treatment Note Next Visit Plan DC once pt on indep HEP. Next: Review Balance HEP -. Add ankle stretch after shuttle balance, progress L ankle strengthening (PF). Educate in off lying on L hip if pain is with L sidelie. Issue HEP: Trunk rot- issued 11/26/23 and TA (sup/sidelie) strengthening. POC: ankle stability ex's (PF ); CKC knee quad strengthening ; core stability with ex; Balance ex's. `
--- NOTE | 2023-12-10 17:05 | PT.OTN ---
Addendum entered and electronically signed by Holley Clement, PT 12/10/23 17:49: LEFS Score is 55/80 (20-39% impaired, score 48-62). FAAM Score is 70/84 (1-19% impaired, score 67-83) Original Note: Current Diagnoses Pain in left hip (12/10/23) Pain in left knee (12/10/23) Pain in left ankle and joints of left foot (12/10/23) Physical Therapy Treatment Note PT-OP-A Visit Information Start: 10/09/23 18:05 Freq: Status: Active Protocol: Document 12/10/23 11:22 LRN (Rec: 12/10/23 12:29 LRN [id number]) Out-Patient Physical Therapy Visit Information Visit Information Visit Type Discharge Summary Visit Start Time 11:22 Visit Stop Time 12:12 Visit Number 12 Precautions Precautions Pt reports history of: Arthritis, back pain, vaso vagal syncope. 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 PT-OP-B Current Condition Start: 10/09/23 18:05 Freq: Status: Active Protocol: Document 10/15/23 14:44 LRN (Rec: 10/15/23 16:43 LRN [id number]) Current Condition History of Current Condition Onset Date 1 yr ago. Current Complaints No pain, L LE has made gait different, L knee unstable laterally. History of Current Condition 12-15 yrs ago developed weakness in L ankle. Going downhill ankle felt ankle could give way, but wasn't falling. L knee winter, slipped on ice with the L leg slipping under him and R leg went out in front of him (grabbed car with L arm), landing on L buttock. 2013 playing competetive baseball, 2016 missed the bottom 2 steps at home and landed like the previous fall of L leg under him. After 2 weeks of either incidents pain at lateral L knee and ramsey, went away. 1 yr ago L lateral hip and joint started bothering him. For months was on/off. Last 2 months the L lateral hip pain has been waking him. The last 2 weeks has had no nighttime pain. Biking feels like he is supported. KNEE PAIN WITH WLAKIKNG OR HIKING 6 MILES OR SO; HIP PAIN HAS ONLY BEEN WITH SLEEPING. HAS NOT HAD ANY HIP PAIN WITH WALKING. Prior Treatments and Tests X-rays (05/19/2023) showed arthritis in L hip and knee. Treatment Goals Patient/Caregiver Goals Pt goals: Maintanence HEP for stabilize/ strength LLE and to slow down degredation of L hip/knee/ ankle. If he has hip pain, no nighttime pain waking him up. Personal Factors Other Personal Factors That May Effect Arthritis, Walking [facility] trail or [place] park 3x/wk (10,000 steps) & home cable UE ex's- 2x/week. Pt has visible abdominal hernia. PT-OP-C Subjective Start: 10/09/23 18:05 Freq: Status: Active Protocol: Document 12/10/23 11:22 LRN (Rec: 12/10/23 12:29 LRN [id number]) OP-PT Subjective Patient Comments Patient Comments States he needs to a review of HEP because he is going to be travelling for a month. States his hip doesn't wake him up at night. PT-OP-G Mobility & Gait Start: 10/09/23 18:05 Freq: Status: Active Protocol: Document 10/15/23 14:44 LRN (Rec: 10/15/23 16:43 LRN [id number]) OP Gait Assessment Gait Gait Assistance Required: Independent Assistive Devices Assistive Device None Gait Deviations General Gait Pattern Within Normal Limits Comments Gait Comments Normal gait. Stair Climbing Evaluation Evaluation Level of Assist On Stairs Independent Devices Stair Climbing Assistive Devices None Technique/Endurance Stair Climbing Technique Step Over Step Comments Stair Climbing Comments Use of railing with stairs. PT-OP-H Neuro Start: 10/09/23 18:05 Freq: Status: Active Protocol: Document 10/15/23 14:44 LRN (Rec: 10/15/23 16:43 LRN [id number]) Sensation Evaluation Gross Sensation Gross Sensation WNL PT-OP-J Posture/Palpation/Skin Start: 10/09/23 18:05 Freq: Status: Active Protocol: Document 10/15/23 14:44 LRN (Rec: 10/15/23 16:43 LRN [id number]) Posture Evaluation Position Standing Head/C-Spine Posture Forward Head Shoulder Posture (L) Elevated Arm Posture (L) Internally Rotated,(R) Internally Rotated Pelvis Posture Anteriorly Tilted,(L) PSIS Posterior Hip Posture (L) Neutral,(R) Neutral Knee Posture (L) Neutral,(R) Neutral,(L) Int. Tibial Torsion,(R) Int. Tibial Torsion Patellar Posture (L) Laterally Tilted,(R) Laterally Tilted Ankle/Foot Posture (L) Pronated,(R) Pronated Foot Arch (R) Medium Arch,(L) Low Arch Comments Posture Comments Tilt upper body to R, mild anterior tilt of pelvis, protruding abdomen. Swelling in LE's with notable compression where socks were present. Palpation Assessment Location L hip Palpation Location L TFL, anterolateral jt line Palpation Findings Tenderness Palpation Details Tenderness with resisted hip AB & rolling of leg L knee Palpation Location No pain around joint or patella. L ankle Palpation Location No pain around joint. PT-OP-K Range of Motion Start: 10/09/23 18:05 Freq: Status: Active Protocol: Document 12/10/23 11:22 LRN (Rec: 12/10/23 12:29 LRN [id number]) Hip Goniometric Range of Motion Hip Right Active Testing Position Supine Internal Rotation 40 External Rotation 50 Left Active Testing Position Supine Internal Rotation 30 External Rotation 45 Ankle and Foot Goniometric Range of Motion Ankle and Foot Right Active Testing Position Supine Dorsiflexion with Knee Extended 15 Plantarflexion 58 Inversion 28 Eversion 15 Left Active Testing Position Supine Dorsiflexion with Knee Flexed 15 Dorsiflexion with Knee Extended 15 Plantarflexion 60 Inversion 30 Eversion 18 PT-OP-L Special Tests Start: 10/09/23 18:05 Freq: Status: Active Protocol: Document 10/15/23 14:44 LRN (Rec: 10/15/23 16:43 LRN [id number]) Special Tests Lumbar Spine Special Tests Straight Leg Raise Test Results - bilaterally Comments ~90 deg's bilaterally. PT-OP-M Strength Start: 10/09/23 18:05 Freq: Status: Active Protocol: Document 10/15/23 14:44 LRN (Rec: 10/15/23 16:43 LRN [id number]) Hip Strength Hip Manual Muscle Testing Right Comments Generally 5/5. Left Abduction 3+ Fair+ Comments Pain with hip AB in lateral hip. Strength is 5/5 except as indicated above. Loss of rotational core stability with MMT of hip. Knee Strength Knee Manual Muscle Testing Right Comments Generally 5/5 Left Comments Generally 5/5 Ankle/Foot Strength Ankle and Foot Manual Muscle Testing Right Comments Generally 3/5 Left Comments Generally 5/5 PT-OP-Q Treatments Start: 10/09/23 18:05 Freq: Status: Active Protocol: Document 12/10/23 11:22 LRN (Rec: 12/10/23 12:29 LRN [id number]) Therapeutic Exercises Supine Exercises Ankle AROM Supine Exercise Name Ankle AROM: PF, DF, IV, EV Reps/Minutes 2' Comments ROM taken Piriformis stretch Supine Exercise Name Knee/ankle to opp shoulder Side bilateral Reps/Minutes 60 SH each Comments Cuing for hand support to ankle/mid ramsey and knee, ROM taken Hip flexor stretch Supine Exercise Name KTC stretch Side bilateral Reps/Minutes 60 SH Lateral hip stretch Supine Exercise Name Lateral Hip stretch Side bilateral Comments Cuing to keep opp leg straight Knee flex stretch Supine Exercise Name KTC - knee flex stretch Side bilateral Reps/Minutes 60 x2 L, x1 R Comments good feedback L Hip ER stretch Supine Exercise Name Fig 4 stretch - HEP Side bilateral Reps/Minutes 60 SH Comments good hold full 60 s, ROM taken Sitting Exercises Trunk rot Sitting Exercise Name Active trunk rot for deep rotator strengthening Side bilateral Reps/Minutes 4' Comments Cuing for drawing ribs inward Ankle DF Sitting Exercise Name Verbal Review of HEP Reps/Minutes 1' Ankle IV/EV Sitting Exercise Name Verbal Review of HEP Reps/Minutes 1' Standing Exercises Toe raises Standing Exercise Name Verbal Review of HEP Reps/Minutes 1' squat Standing Exercise Name squat without band/TA tight Side bilateral Resistance level 2 band Reps/Minutes 2X10 Comments post hip hinge training VC knees over ankles, WB more on heels for glut >< heel raise Standing Exercise Name Verbal Review of HEP Reps/Minutes 1' Neuro Re-Education Treatment Balance Activities SLS Details SLS balancing: Static SLS, and reviewed reaching fwd/ tandem Surface floor w/shoes and w/o shoes Equipment No chair in front for reaching fwd & tandem stance Reps/Duration 8' Comments Arms crossed over chest (with static standing SLS) erect posture over stance LE with core engagement little bent knee stance time: w/o shoes: 16 secs Left, 35 secs Right; With shoes: 1min 10+secs left , 39 secs right. PT-OP-T Assessment and Plan Start: 10/09/23 18:05 Freq: Status: Active Protocol: Document 12/10/23 11:22 LRN (Rec: 12/10/23 12:29 LRN [id number]) Physical Therapy Assessment Goals Four Impairment Feeling weak in L ankle Short Term Goal (STG) Pt will be independent in HEP of ankle EV/IV stretching and SL balance ex's (core ex as needed). 10/20/23: HEP of active stretching: Ankle IV/EV, DF, Circles. 11/03/23: Reviewed HEP of SLS exer. 11/16/23: Reviewed HEP resisted ankle ex's DF, IV/EV - modified Lvl 2 Tb to a loop - cued eccentric control. 12/10/23: HEP: Core ex: Reviewed sitting trunk rot STG Duration 4 wks-11/12/23 (11/03/23: MET GOAL) Shelter Goal (LTG) Improve pt L ankle EV/IV ROM to increase pt ability to stabilize while walking on uneven ground (hiking). 11/05/23: Has walked 2 miles hiking slow walking but mostly level ground.; felt stability . 11/08/23: Reviewed HEP resisted ankle ex's DF, IV/EV - modified Lvl 2 Tb to a loop - cued eccentric control. 12/10/23: Pt has not hiked due to the inclement weather. Walking on hill and natural stone in sand, feels more comfortable walking on it. Able to go up/down stairs without pain/discomfort. Pt ankle symmetry mobility much improved (see ankle ROM) LTG Duration 8 wks-12/11/23 (12/10/23: Pt hasn't hiked, goal not assessed). Three Impairment L knee pain after walking. Short Term Goal (STG) Pt will be independent with knee flexion ROM ex. 10/20/23: HEP: KTC knee flex stretch STG Duration 2 wks-10/30/23 (10/20/23: MET GOAL) Shelter Goal (LTG) Improve L knee flexion mobility to improve pt's abiltiy to anbulate for ex w/o onset of L lateral knee pain. 11/03/23: No pain with walking on level, some discomfort on decline angle. 11/16/23: No change. 12/10/23: No L lateral knee pain with walking. LTG Duration 8 wks-12/11/23 (12/10/23: MET GOAL) Two Impairment Intermittent L hip pain at night, interrupting sleep. Impairment If he has hip pain, no nighttime pain waking him up. Short Term Goal (STG) Educate pt in best nighttime positioning to avoid L hip pressure pain. STG Duration 1 wk-10/23/23 (10/27/23: MET GOAL) Shelter Goal (LTG) Improve L hip ER mobility to eliminate onset of nighttime pain. 11/03/23: No L hip pain at nighttime. LTG Duration 8 wks-12/11/23 (11/03/23: MET GOAL) One Impairment Pt lacks HEP. Short Term Goal (STG) Pt will be educated in self care pain management techniques (RICE, MH w/ stretches). 12/10/23: Reviewed previously education on RICE technique & discussed use of MH/ex warm up before stretches STG Duration (MET GOAL) Shelter Goal (LTG) Pt will be educated in maintanence HEP for stabilize/ strength LLE and to slow down degredation of L hip/knee/ ankle. 10/20/23: HEP: L>R Hip stretches of KTC, Piriformis stretch (knee to opp shldr & KTC with ankle over knee, Lateral Hip stretch, Fig 4, Emeka test position hip flexor stretch (I/S can do from side of surface lying on) . 10/30/23: added TA hip abd and SLS review self HEP floor 1st while support 's HEP. LTG Duration 8 wks-12/11/23 (12/10/23: MET GOAL) Assessment Summary Assessment Pt is a 73 yo male who initially had L lateral, posterolateral and anterior hip pain that he had for the past year, but for the past 2 weeks did not have pain. His primary complaint was L hip pain only with sleeping at night and L lateral knee pain after walking. He is now able to sleep at night w/o complaints of pain, and is having no L knee pain with walking/stairs. He has not been able to assess if his ankle mobility and balance is better on uneven ground ( hiking) due to inclement weather, but his bilateral ankle ROM has improved in range and symmetry. He is having less fatigue with improved alignment with walking, stairs, and biking. The pt has an independent HEP that he shows good understanding and questions regarding balance ex's has been addressed. The pt is ready for discharge to his HEP . Physical Therapy Plan Discharge Physical Therapy Discharge Reasons Goals Met Discharge Comments Thank you for your referral.
== END 2023-12-15 07:55 | disposition home or self-care (01) ==
LOC: PHYS 11:15
PROVIDERS: Family Provider Family Medicine; PCP Family Medicine; Referring Provider Family Medicine; Visit Provider Family Medicine
DX: M25.572 Pain in left ankle and joints of left foot (principal); M25.562 Pain in left knee; M25.552 Pain in left hip
CPT/HCPCS: 97110; 97112; 97530; 97535

== ENCOUNTER 2023-12-11 15:37 | Day surgery (SDC) | payer MEDICARE, SELFPAY ==
--- NOTE | 2023-12-11 | PATH_ITS ---
[facility] Accession Number: [id number] No. of containers..01 Tissue . 01 Material submitted: . colon - RECTAL POLYP . 01 Diagnosis: RECTAL POLYP: Colonic mucosa with benign lymphoid aggregate. No neoplasm identified. [facility] 12/17/2023 1223 Local . 01 Electronically signed: . Srikanth Leggett MD, Pathologist NPI- [id number] . 01 Gross description: . RECTAL POLYP: Received in formalin is 1 fragment(s) of sharpe, soft tissue measuring 0.7 x 0.5 x 0.4 cm submitted entirely in 1 cassette(s) /NASRIN 12/17/2023 1223 Local . 01 Pathologist provided ICD-10: K63.89 . 01 CPT . 024596 Specimen Comment: A courtesy copy of this report has been sent to [phone] Performed at: 01 [facility] [address] [place] [address], [place], [place] [id number] MD Srikanth Leggett MD Phone: [phone]
[2023-12-11 15:57] VITALS: BP 165/82; PULSE 91; RESP 18; TEMP 36.6; O2SAT 96
[2023-12-11] MEDS: LACTATED RINGERS 1,000 ML 42 ML IV (16:02)
--- NOTE | 2023-12-11 16:30 | P.HP_ITS ---
History of Present Illness History of Present Illness Date Patient Seen: 12/11/23 Time Patient Seen: 16:30 Chief complaint: Colonoscopy Narrative: Gregg is a 73-year-old man here for screening colonoscopy. Last colonoscopy 2013 normal. No family history of intestinal malignancy. No abdominal concerns today. 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 Vasovagal syncope Obesity (BMI 30-39.9) Nasal airway abnormality (~10/2018) Obstructive sleep apnea of adult (~2017) Surgical History Anesthesia History of tumor (~1967) History of cataract removal with insertion of prosthetic lens (~2019) Basal cell carcinoma H/O colonoscopy H/O vasectomy Family History Mother Essential hypertension Tremors of nervous system Father Alzheimer's dementia Kidney disorder Grandfather Heart attack Social History marital status: details: pete Plasencia, lives in [place] household members: spouse lives independently: Yes caregiver/support person: No housing: house education level: college occupational status: previously employed (retired) Previous occupational history: temporary staff accountant Smoking Status: Never smoker alcohol intake: current Meds Home Medications and Allergies Home Medications Medication Instructions Recorded Confirmed Type Resmed Airsense 10 CPAP #1 ea 01/19/19 05/19/23 History aspirin 81 mg tablet,delayed 81 mg PO DAILY 10/15/21 12/11/23 History release psyllium husk 0.52 gram capsule 1.56 g PO DAILY 10/15/21 05/19/23 History (Fiber (psyllium husk)) cholecalciferol (vitamin D3) 125 125 mcg PO DAILY 12/29/22 05/19/23 History mcg (5,000 unit) capsule vjecjafz-cicubufz-necwb acid 400 tab PO 12/29/22 05/19/23 History mcg-vit K 20 mcg-lycop 300 mcg tablet (One-A-Day Men's Multivitamin) sodium,potassium,mag sulfates 17.5 See Rx Instructions PO .COMPLEX 11/13/23 Rx gram-3.13 gram-1.6 gram oral soln #354 mL (Suprep Bowel Prep Kit) Allergies Allergy/AdvReac Type Severity Reaction Status Date / Time sildenafil [From VIAGRA] AdvReac Mild headache, Verified 12/11/23 15:57 felt hungover vardenafil [From LEVITRA] AdvReac Mild headache, Verified 12/11/23 15:57 felt hungover Exam Vital Signs (past 8 hours): - 12/11/23 15:57 Temperature 97.9 F Pulse Rate 91 H Respiratory Rate 18 Blood Pressure 165/82 H Pulse Oximetry 96 Oxygen Delivery Method Room Air Oxygen Delivery Method Room Air Narrative Exam Narrative: General adult man alert oriented no acute distress Chest nonlabored respiration Extremities warm well perfused Assessment & Plan Assessment & Plan narrative: The patient requires colorectal screening and colonoscopy is recommended. Technical details were discussed. Risks, benefits, alternatives explained. Risks including but not limited to myocardial infarction, aspiration, bleeding, pain, missed lesion, incomplete examination, need for further radiographic studies, colonic perforation, and need for major abdominal surgery were discussed. All questions were answered to their satisfaction, and they are in agreement with this plan.
--- NOTE | 2023-12-11 16:36 | P.OP.COLON_ITS ---
Operative Date/Time/Diagnoses Date of procedure: 12/11/23 Time of procedure: 16:36 Pre-op diagnosis: Colorectal screening Procedure & Clinicians Study performed: Colonoscopy Same procedure as scheduled: Yes Indications: Colorectal screening Surgeon: Wali Figueroa Procedure Notes Procedure in detail: The history and physical was performed/updated and the patient is ASA class is 2. The procedure was discussed in detail with the patient. Potential risks complications including infection, bleeding, missed diagnosis, perforation, need for surgery, and were explained. Their questions were answered and informed consent was obtained. Patient was brought to the procedure room and placed standard monitoring equipment. The patient's vital signs were monitored continuously throughout the entire procedure. Prior to starting time-out was performed. The patient was placed in the left lateral recumbent position. Procedural sedation was administered by anesthesia. Examination began with a thorough inspection of the perianal area there was no evidence of fissures, fistulae, external hemorrhoids or cutaneous malignancy. The colonoscopy scope was then placed into the anal canal and was advanced to the cecum, which was identified by the ileocecal valve , the appendiceal orifice and the confluence of the taenia. The scope was then slowly withdrawn examining colon thoroughly in all directions, irrigating it of any residual stool. The scope was retroflexed within the rectum The patient tolerated the procedure well. They will be discharged once criteria are met. The prep was of good/excellent quality. The withdrawl time was 6 minutes. FINDINGS * Rectum 5 mm polyp removed with hot snare. * Remainder of colonoscopy unremarkable we will with the exception of mild diverticulosis within the descending colon. Specimen(s): other (Rectal polyp) Impression: Colonic polyp x1 Post-procedure Plan for aftercare: Follow-up is dependent on pathology findings. Disposition: same day surgery
[2023-12-11 16:53] VITALS: BP 118/60; PULSE 76; RESP 16; TEMP 36.6; O2SAT 95
[2023-12-11 16:58] VITALS: BP 127/77; PULSE 76; RESP 18; O2SAT 95
[2023-12-11 17:04] VITALS: BP 131/68; PULSE 74; RESP 16; TEMP 36.6; O2SAT 95
[2023-12-11 17:09] VITALS: BP 126/75; PULSE 78; RESP 16; O2SAT 95
== END 2023-12-11 17:19 | disposition home or self-care (01) ==
PROVIDERS: Family Provider Family Medicine; PCP Family Medicine; Referring Provider Surgery; Visit Provider Surgery
PROC: 0DJD8ZZ Inspection of Lower Intestinal Tract, Via Natural or Artificial Opening Endoscopic (ICD-10-PCS; CPT 45378; principal; 2023-12-11 15:15)
DX: Z12.11 Encounter for screening for malignant neoplasm of colon (principal); K57.30 Diverticulosis of large intestine without perforation or abscess without bleeding; G47.33 Obstructive sleep apnea (adult) (pediatric); K62.1 Rectal polyp
CPT/HCPCS: 45385; 93005; 93010; J2704

== ENCOUNTER → 2024-02-16 06:50 | Outpatient (CLI) | payer MEDICARE, SELFPAY ==
[2024-02-16 07:51] LABS: Add Manual Diff / Slide Review NO; Basophils Absolute Auto 0 /uL (0-100); Basophils Percent Auto 0.8 % (0-2); Eosinophils Absolute Auto 300 /uL (0-450); Eosinophils Percent Auto 4.3 % (2-4); Hematocrit 43.8 % (41-53); Hemoglobin 15.3 g/dL (13.5-17.5); Lymphocytes Absolute Auto 2200 /uL (1100-4500); Lymphocytes Percent Auto 35.5 % (25-40); Mean Corpuscular Hemoglobin 30.5 PG (26-34); Mean Corpuscular Volume 87.2 fL (80-100); Monocytes Absolute Auto 600 /uL (0-900); Monocytes Percent Auto 9.2 % (3-14); Neutrophils Absolute Auto 3100 /uL (1500-7000); Neutrophils Percent Auto 50.2 % (50-75); Platelet Count 188 X10^3/uL (150-400); Red Blood Cell Count 5.03 X10^6/uL (4.5-5.9); Red Cell Distribution Width 12.8 % (11.6-14.8); White Blood Cell Count 6.1 X10^3/uL (4.5-11.0)
[2024-02-16 08:14] LABS: Alanine Aminotransferase 29 IU/L (<50); Albumin 4.4 g/dL (3.5-5.0); Albumin Globulin Ratio 1.6 (1.0-2.8); Alkaline Phosphatase 70 U/L (38-126); Aspartate Aminotransferase 33 IU/L (17-59); BUN Creatinine Ratio 21.4 (6-22); Bilirubin Total 1.1 mg/dL (0.2-1.3); Blood Urea Nitrogen 21 mg/dL (9-20); Calcium 9.2 mg/dL (8.4-10.2); Carbon Dioxide 30 mmol/L (22-32); Chloride 105 mmol/L (98-107); Cholesterol 171 mg/dL (140-199); Estimated Glomerular Filt Rate > 60 mL/min (>60); Globulin 2.7 g/dL (1.7-4.1); Glucose 96 mg/dL (80-110); HDL Cholesterol 48 mg/dL (40-60); HEMOLYSIS < 15 (0-50); LDL Cholesterol Calculated 104 mg/dL (<100); Potassium 4.7 mmol/L (3.4-5.1); Sodium 139 mmol/L (137-145); Total Protein 7.1 g/dL (6.3-8.2); Triglycerides 95 mg/dL (35-150)
[2024-02-16 08:28] LABS: Vitamin D 25 Hydroxy (D3) 86.4 ng/mL (30.0-100.0)
[2024-02-16 08:43] LABS: Prostate Specific Antigen Scrn 3.96 ng/mL (0.1-4.0); TSH w/ Reflex to FT4 2.33 uIU/mL (0.47-4.68)
[2024-02-16 09:12] LABS: Creatinine Urine Random 131.5 mg/dL
[2024-02-16 09:27] LABS: Microalbumin Urine Random < 0.6 mg/dL (0-1.6)
== END ==
PROVIDERS: Family Provider Family Medicine; PCP Family Medicine; Referring Provider Family Medicine; Visit Provider Family Medicine
DX: Z12.5 Encounter for screening for malignant neoplasm of prostate (principal); R03.0 Elevated blood-pressure reading, without diagnosis of hypertension; E66.9 Obesity, unspecified; E78.00 Pure hypercholesterolemia, unspecified
CPT/HCPCS: 36415; 80053; 80061; 82043; 82306; 82570; 84443; 85025; G0103